=== PATIENT | female | born 1945 | race Caucasian/White ===

== ENCOUNTER → 2019-09-07 08:44 | Outpatient (BNVA) | payer MEDICARE, MEDICAID, SELFPAY | PROVIDERS: Family Provider Nurse Practitioner Family; PCP Nurse Practitioner Family; Visit Provider Nurse Practitioner Family | DX: R11.2 Nausea with vomiting, unspecified (principal); R68.89 Other general symptoms and signs; J44.1 Chronic obstructive pulmonary disease with (acute) exacerbation | CPT/HCPCS: 87804 ==

== ENCOUNTER → 2020-07-05 10:52 | Outpatient (BNVA) | payer MEDICARE, MEDICAID, SELFPAY | PROVIDERS: Family Provider Nurse Practitioner Family; PCP Nurse Practitioner Family; Visit Provider Nurse Practitioner Family | DX: Z20.828 Contact with and (suspected) exposure to other viral communicable diseases (principal); B34.9 Viral infection, unspecified | CPT/HCPCS: 87635 ==

== ENCOUNTER 2020-07-26 10:51 | Outpatient (CLI) | payer MEDICARE, MEDICAID, SELFPAY ==
--- NOTE | 2020-07-26 11:11 | XR_ITS ---
WS: [id number] Right hip, AP and frog-leg views, AP pelvis, 07/26/2020 Clinical Data: RIGHT HIP PAIN Comparison: None. Findings: No fractures or dislocations are seen. The hip joints are intact. The SI joints and pubic symphysis a re not remarkable. The soft tissues are normal. XR/XR hip RT 2-3V wo/w pel* [id number] Impression: Negative right hip and pelvis.
== END 2020-07-26 10:52 | disposition home or self-care (01) ==
PROVIDERS: PCP Nurse Practitioner Family; Visit Provider Nurse Practitioner Family
DX: M25.551 Pain in right hip (principal)
CPT/HCPCS: 73502

== ENCOUNTER 2020-08-07 18:29 | Emergency (ER) | payer MEDICARE, MEDICAID, SELFPAY ==
[2020-08-07 18:33] VITALS: BP 121/58; PULSE 91; RESP 18; TEMP 36.5; O2SAT 98; BMI 30.7
--- NOTE | 2020-08-07 18:45 | ED_ITS ---
HPI - Extremity Problem General: Chief complaint: Extremity Injury, Lower Stated complaint: R LEG AND HIP PAIN Time Seen by Provider: 08/07/20 18:40 History of Present Illness: HPI Narrative: Patient is a 74-year-old female comes to the ED with pain radiating down right leg. Patient says she has been having chronic lower back and right hip pain for the past several months. She is seen her PCP about pain and they just did some hip and pelvis x-rays. For t he past couple weeks she has been having pain radiating down into her right upper thigh. Today she went to sleep lying flat, which is something she has been avoiding doing for the past couple months due to the lower back and right hip and leg pain. She says when she woke up she was having more intense pain starting from the top of her right hip and radiating down into her right thigh. Pain is rated a 7 out of 10. Denies bladder or bowel incontinence, pelvic anesthesia. Associated symptoms: Deny chest pain, fever(s) or rash Review of Systems Const: Denies: fever(s), chills or fatigue Eyes: Denies: change in vision or eye discomfort ENMT: Denies: throat pain, odynophagia, nasal discharge or nasal congestion Card: Denies: chest pain, palpitations, edema, swelling of feet/ankles, dyspnea on exertion or orthopnea Resp: Denies: dyspnea, productive cough or non-productive cough GI: Denies: abdominal pain, nausea, vomiting, diarrhea, constipation or hemat ochezia : Denies: flank pain, dysuria or hematuria Musc: Reports: back pain (Lower back) and extremity pain (Pain rating down into right thigh.); Denies: neck pain or extremity swelling Skin/Breast: Denies: rash or new lesions Neuro: Denies: headache(s), numbness in extremities or weakness in extremities PFSH ED PFSH: Medical History Atherosclerotic cardiovascular disease Atherosclerotic heart disease [place] coronary artery w/angina pectoris Cataracts, bilateral Diabetes Dyslipidemia GERD (gastroesophageal reflux disease) Hypersomnia Hypertension Hypothyroidism Seasonal allergies Surgical History History of cholecystectomy History of hysterectomy Family History Other CAD (coronary artery disease) Diabetes Hypertension Social History Smoking and tobacco status: current every day smoker Alcohol intake: never Marital status: Current gender identity: Female Physical Exam Const: COMMON NORMALS: no acute distress, patient oriented x3 and alert GENERAL APPEARANCE: cooperative and comfortable HENMT: COMMON NORMALS: normocephalic HEAD & SCALP: normocephalic MOUTH: Normal oral and palatal mucosa present THROAT: posterior oropharynx normal and uvula midline Neck/C-Spine: COMMON NORMALS: supple GENERAL: Yes normal visual inspection Resp: COMMON NORMALS: normal respiratory effort, No retractions, No use of accessory muscles and clear to auscultation bilaterally AUSCULTATION: clear to auscultation bilaterally Cardio: COMMON NORMALS: regular rate, regular rhythm, S1 normal heart sound present, S2 normal heart sound present, No gallops present (Cardio), No clicks present (Cardio), No murmurs present (Cardio) and Peripheral pulses 2+ throughou t RATE: regular rate RHYTHM: regular rhythm HEART SOUNDS: S1 normal heart sound present and S2 normal heart sound present PERIPHERAL PULSES: Peripheral pulses 2+ throughout GI: COMMON NORMALS: Normal to inspection, nondistended, normoactive bowel sounds present, Soft to palpation, non-tender and no masses PALPATION: Yes Soft to palpation : COMMON NORMALS: Yes no CVA tenderness BLADDER/KIDNEY EXAM: Yes no CVA tenderness Back/Pelvis: COMMON NORMALS: no CVA tenderness LUMBAR SPINE/LOWER BACK: Yes pain with ROM, No lumbar spinal tenderness, Yes paraspinal muscle tenderness and Yes straight leg raise positive right Extremity: COMMON NORMALS: normal to inspection Neuro: COMMON NORMALS: patient oriented x3 and moves all extremities SENSORIUM/ORIENTATION: Yes alert Skin: GENERAL SKIN EXAM: dry skin Course Vital Signs: Vital signs: Vital Signs Temperature 97.7 F 08/07/20 18:33 Pulse Rate 87 08/07/20 19:41 Respiratory Rate 16 08/07/20 19:41 Blood Pressure 133/87 08/07/20 19:41 Pulse Oximetry 96 08/07/20 19:41 MDM - Extremity (Nontraumatic) MDM Narrative: Medical decision making narrative: Patient is a 74-year-old female comes to the ED with lower back pain and pain radiating down right leg. No cauda equina symptoms. Physical exam findings suggestive of lumbar radiculopathy. Patient was given a dose of Toradol while here in the ED. She was sent home with a prescription for ibuprofen 800s, cyclobenzaprine and Medrol Dosepak. She was told to follow-up with her PCP in 7 to 10 days for reevaluation. Stretch lower back daily and apply ice or heat to lower back to help with symptoms. Return to ED precautions given. Patient understood agree with plan. Discharge Plan Discharge Patient Disposition: Home Clinical Impression: Lumbar radiculopathy Condition: Stable Prescriptions: New ibuprofen 800 mg tablet 800 mg PO Q8H PRN (Reason: pain) Qty: 30 RF: 0 cyclobenzaprine 5 mg tablet 5 mg PO TID PRN (Reason: muscle spasm) Qty: 30 RF: 0 methylprednisolone 4 mg tablets,dose pack See Rx Instructions .ROUTE .COMPLEX Qty: 21 RF: 0 No Action isosorbide mononitrate 30 mg tablet extended release 24 hr 30 mg PO QAM RF: 0 hydrochlorothiazide 25 mg tablet 25 mg PO QAM RF: 0 gabapentin 300 mg capsule 300 mg PO .HS RF: 0 diltiazem HCl 180 mg capsule,extended release 24 hr 180 mg PO QAM RF: 0 meloxicam 15 mg tablet 15 mg PO QDAY RF: 0 levothyroxine 175 mcg tablet 175 mcg PO QDAY RF: 0 nitroglycerin [Nitrostat] 0.4 mg tablet, sublingual 0.4 mg SUBLINGUAL Q5M PRNRF: 0 fenofibrate nanocrystallized 145 mg tablet 145 mg PO QDAY RF: 0 rosuvastatin [Crestor] 40 mg tablet 40 mg PO .HS RF: 0 Tradjenta 5 mg tablet 5 mg PO QAM RF: 0 glipizide 10 mg tablet 20 mg PO BID RF: 0 Farxiga 10 mg tablet 10 mg PO QAM RF: 0 aspirin [Adult Low Dose Aspirin] 81 mg tablet,delayed release (DR/EC) 81 mg PO QDAY RF: 0 prednisone 10 mg tablets,dose pack 10 mg PO PER PKG DIR Qty: 21 RF: 0 (DME) Compact Compressor Nebulizer Misc See Rx Instructions .ROUTE .MEDSUPPLY Qty: 1 RF: 0 (DME) Reusable Nebulizer Kit Kit See Rx Instructions .ROUTE .MEDSUPPLY Qty: 1 RF: 0 albuterol sulfate 2.5 mg /3 mL (0.083 %) solution for nebulization 2.5 mg INHALATION QID PRN (Reason: shortness of breath or wheezing) Qty: 180 RF: 1 Discharge Orders: Discharge ED (Routine); Ordered 08/07/20 Ordered By: Shalom Edwards Referrals: Agnes Dee APN [Primary Care Provider] - Discharge Diet: Regular Discharge Activity: Increase activity as tolerated Patient Instructions: Lumbar Radiculopathy (ED) Activity Restrictions/Additional Instructions: Follow-up with medical provider as directed at next scheduled appointment. Take medications as prescribed. Stretch lower back daily and apply heat or ice to help with symptoms. Return to the ER or your medical provider if condition worsens. Please read and understand discharge instructions. If any questions, please ask. Coding Level of Care Code ED Tourist Guide for Humberto Fwd Exam Comprehensive
[2020-08-07] MEDS: ketorolac 30 mg/mL INJ IVP (19:23)
[2020-08-07 19:41] VITALS: BP 133/87; PULSE 87; RESP 16; O2SAT 96
== END 2020-08-07 19:41 | disposition home or self-care (01) ==
LOC: ER 19:26
PROVIDERS: Emergency Provider Physician Assistant; PCP Nurse Practitioner Family
DX: M54.16 Radiculopathy, lumbar region (principal); Z79.82 Long term (current) use of aspirin; Z79.84 Long term (current) use of oral hypoglycemic drugs; I25.119 Atherosclerotic heart disease of native coronary artery with unspecified angina pectoris; E11.9 Type 2 diabetes mellitus without complications; E78.5 Hyperlipidemia, unspecified; I10 Essential (primary) hypertension; F17.210 Nicotine dependence, cigarettes, uncomplicated
CPT/HCPCS: 12345; 96374; 96375; 99281; 99283; J1885; J2930

== ENCOUNTER 2020-10-05 14:53 | Outpatient (CLI) | payer MEDICARE, MEDICAID, SELFPAY ==
--- NOTE | 2020-10-05 15:02 | MR_ITS ---
WS: [id number] MRI RIGHT HIP NONCONTRAST TECHNIQUE: Axial T1, axial T2 fat sat, coronal T1, coronal STIR, sagittal T2 fat sat, sagittal T1, an d sagittal T2 fat sat, of both hips. CLINICAL INFORMATION: RIGHT HIP PAIN COMPARISON: None. FINDINGS: Moderate degenerative arthritis with joint space narrowing both hips. No acute fractures. No subchond ral edema. Bone marrow signal in the femoral heads and necks are normal. Normal bone marrow signal in the proximal femoral shafts. No significant joint effusion. Inferior and superior pubic rami are normal in appearance. Normal bone marrow signal in the sacrum an d ilium. Degenerative arthritis sacroiliac joints. No periarticular edema. Mild diffuse bladder wall thickening can be seen with chronic cystitis. Sigmoid diverticulosis. No inguinal lymphadenopathy. MR/MR hip RT wo con* [id number] IMPRESSION: 1. Moderate degenerative arthritis both hips. Right hip is otherwise normal in appearance. No acute fractures. 2. Normal bone marrow signal in the pelvic bony structures and sacrum. No sacr al insufficiency fractures. 3. Mild diffuse bladder wall thickening can be seen with chronic cystitis.
--- NOTE | 2020-10-05 15:02 | MR_ITS ---
WS: [id number] MRI LUMBAR SPINE NONCONTRAST TECHNIQUE: Sagittal T1, T2 and STIR imaging. Axial T1 and T2 imaging. CLINICAL INFORMATION: LUMBAR RADICULOPATHY COMPARISON: None. FINDINGS: Counting performed from the craniocervical junction. L5 is sacralized. Recommend plain film correlati on prior to surgical intervention. Mild lumbar curve. No acute compression. No high-grade central canal stenosis. L1-L2: Mild annular bulging. Spinal canal and foramen are patent. Mild facet arthropathy. L2-L3: Mild annular bulging with slight effacement of ventral thecal sac. Mild facet arthropathy. Spi nal canal and foramen are patent. L3-L4: Mild annular bulging with mild central canal stenosis and slight impingement traversing L4 ner ve roots. Moderate facet arthropathy. Small bilateral foraminal protrusions with mild bilateral hilton inal narrowing and slight contact of the exiting L3 nerve roots. L4-L5: Slight anterolisthesis L4 on L5. Mild annular bulging with slight effacement of the ventral th ecal sac. Moderate facet arthropathy. Slight impingement on the traversing L5 nerve roots. Mild right foraminal narrowing. L5-S1: L5 is sacralized. Spinal canal and foramen are patent. Visualized pelvic bony structures: Normal. Paravertebral soft tissues: Normal. Small bilateral renal cysts. MR/MR lumbar spine wo con* [id number] IMPRESSION: 1. Counting performed from the craniocervical junction. L5 is sacralized. Iván mmend plain film correlation prior to surgical intervention. 2. Mild central canal stenosis L3-4 due to mild annular bulging and moderate f acet arthropathy. Impingement traversing L4 nerve roots. 3. Small bilateral foraminal protrusions L3-4 with contact of the exiting L3 n erve roots bilaterally. 4. Annular bulging L4-5 slightly impinges the traversing left greater than rig ht L5 nerve roots. 5. Moderate facet arthropathy L3-L4 and L4-L5.
== END 2020-10-05 14:54 | disposition home or self-care (01) ==
LOC: RADSHAW 14:59
PROVIDERS: PCP Nurse Practitioner Family; Visit Provider Nurse Practitioner Family
DX: M54.16 Radiculopathy, lumbar region (principal); M47.816 Spondylosis without myelopathy or radiculopathy, lumbar region; M51.26 Other intervertebral disc displacement, lumbar region; M48.061 Spinal stenosis, lumbar region without neurogenic claudication; M16.0 Bilateral primary osteoarthritis of hip
CPT/HCPCS: 72148; 73721

== ENCOUNTER → 2020-11-07 09:50 | Outpatient (BNVA) | payer MEDICARE, MEDICAID, SELFPAY | PROVIDERS: PCP Nurse Practitioner Family; Referring Provider Nurse Practitioner Family; Visit Provider Orthopaedic Surgery | DX: M48.062 Spinal stenosis, lumbar region with neurogenic claudication | CPT/HCPCS: 72110 ==

== ENCOUNTER → 2020-11-17 09:43 | Outpatient (BNVA) | payer MEDICARE, MEDICAID, SELFPAY | PROVIDERS: PCP Nurse Practitioner Family; Referring Provider Orthopaedic Surgery; Visit Provider Anesthesiology Pain Medicine | DX: G89.29 Other chronic pain (principal); M54.9 Dorsalgia, unspecified; M47.816 Spondylosis without myelopathy or radiculopathy, lumbar region; M54.16 Radiculopathy, lumbar region; M48.062 Spinal stenosis, lumbar region with neurogenic claudication; M25.559 Pain in unspecified hip; M19.90 Unspecified osteoarthritis, unspecified site | CPT/HCPCS: 99205 ==

== ENCOUNTER 2021-01-22 12:39 | Outpatient (CLI) | payer MEDICARE, MEDICAID, SELFPAY ==
--- NOTE | 2021-01-22 12:53 | XR_ITS ---
WS: [id number] LEFT TIBIA-FIBULA 2 VIEWS HISTORY: WOUND OF LEFT LOWER EXTREMITY, INITIAL ENCOUNTER COMPARISON: None available. No fractures or displacement. There is soft tissue edema around the lower extremity. There is mild di splacement posteriorly of the Achilles tendon. Soft tissue edema between the distal tibia and the Ach illes. XR/XR tibia fibula LT 2V [id number] IMPRESSION: 1. Loss of the normal fat planes posterior to the tibia. No osteomyelitis. Rec ommend additional evaluation of the mid to lower extremity MRI with and without contrast to evaluate for possible abscess. 2. No fracture.
== END 2021-01-22 12:40 | disposition home or self-care (01) ==
PROVIDERS: PCP Nurse Practitioner Family; Visit Provider Nurse Practitioner Family
DX: S81.802A Unspecified open wound, left lower leg, initial encounter (principal); X58.XXXA Exposure to other specified factors, initial encounter
CPT/HCPCS: 73590

== ENCOUNTER 2021-02-01 08:10 | Outpatient (CLI) | payer MEDICARE, MEDICAID, SELFPAY | END 2021-02-01 08:11 | disposition home or self-care (01) | LOC: WOUND 08:14 | PROVIDERS: PCP Nurse Practitioner Family; Visit Provider Nurse Practitioner Family | DX: E11.622 Type 2 diabetes mellitus with other skin ulcer (principal); L97.822 Non-pressure chronic ulcer of other part of left lower leg with fat layer exposed | CPT/HCPCS: G0463 ==

== ENCOUNTER 2021-02-05 13:51 | Outpatient (CLI) | payer MEDICARE, MEDICAID, SELFPAY ==
--- NOTE | 2021-02-05 14:02 | MR_ITS ---
WS: [id number] MRI LEFT LOWER EXTREMITY with and without CONTRAST. COMPARISON: LEFT tibia-fibula 01/22/2021. Multiplanar, multisequence imaging is performed with and without contrast. No muscle or bone edema is identified. No fracture or destruction. No expansion of the marrow cavity. The soft tissues and the muscles of the LEFT lower extremity are normal. On the postcontrast sequenc e there is no enhancing mass or signal abnormalities or edema within the muscle. No compartment syndr ome. Visualized tendons and ligaments are negative. MR/MR lower leg LT wo/w con [id number] IMPRESSION: Negative MRI LEFT lower extremity. No muscle or bone abnormality.
[2021-02-05] MEDS: gadobenate dimeglumine 20 mL vial IV (15:18)
== END 2021-02-05 13:52 | disposition home or self-care (01) ==
LOC: RADWPI 13:55
PROVIDERS: PCP Nurse Practitioner Family; Visit Provider Nurse Practitioner Family
DX: S81.802A Unspecified open wound, left lower leg, initial encounter (principal); X58.XXXA Exposure to other specified factors, initial encounter
CPT/HCPCS: 73720; A9577

== ENCOUNTER 2021-02-08 08:50 | Outpatient (CLI) | payer MEDICARE, MEDICAID, SELFPAY | END 2021-02-08 08:51 | disposition home or self-care (01) | LOC: WOUND 08:52 | PROVIDERS: PCP Nurse Practitioner Family; Visit Provider Nurse Practitioner Family | DX: E11.622 Type 2 diabetes mellitus with other skin ulcer (principal); L97.822 Non-pressure chronic ulcer of other part of left lower leg with fat layer exposed | CPT/HCPCS: 11042 ==

== ENCOUNTER 2021-02-15 09:08 | Outpatient (CLI) | payer MEDICARE, MEDICAID, SELFPAY | END 2021-02-15 09:09 | disposition home or self-care (01) | LOC: WOUND 09:09 | PROVIDERS: PCP Nurse Practitioner Family; Visit Provider Nurse Practitioner Family | DX: E11.622 Type 2 diabetes mellitus with other skin ulcer (principal); L97.822 Non-pressure chronic ulcer of other part of left lower leg with fat layer exposed | CPT/HCPCS: 11042 ==

== ENCOUNTER 2021-03-01 09:19 | Outpatient (CLI) | payer MEDICARE, MEDICAID, SELFPAY | END 2021-03-01 09:20 | disposition home or self-care (01) | LOC: WOUND 09:20 | PROVIDERS: PCP Nurse Practitioner Family; Visit Provider Nurse Practitioner Family | DX: E11.622 Type 2 diabetes mellitus with other skin ulcer (principal); L97.822 Non-pressure chronic ulcer of other part of left lower leg with fat layer exposed | CPT/HCPCS: 11042 ==

== ENCOUNTER 2021-03-14 12:56 | Outpatient (CLI) | payer MEDICARE, MEDICAID, SELFPAY ==
--- NOTE | 2021-03-14 12:45 | USCV_ITS ---
Nirali Beaulieu Age: 75 Gender: F : 1945 Exam Date: 03/14/2021 13:27 Ordering Phys: Jannette Purcell Technologist: Shiela Peguero [place]am Location[place] [facility] [place]: HISTORY: Lower extremity pain. Ulcer. PROCEDURES: Bilateral duplex Venous Insufficiency study of the Deep and Superficial systems was carried out according to normal protocol with the patient in supine positon for deep system and dependent position for the superficial system. FINDINGS: All deep veins demonstrated compressibility without evidence of intraluminal thrombus or increased echogenicity. No notable reflux was seen at this time. The veins were found to be easily compressible with spontaneous blood flow. Non pulsatile flow pattern. CONCLUSIONS Evidence of any superficial or deep vein thrombosis in the above- mentioned identifiable veins No significant venous insufficiency Dr Liz Russell MD [facility] (Electronically Signed) Final Date: 19 March 2021 08:12 S
== END 2021-03-14 12:57 | disposition home or self-care (01) ==
LOC: US 12:59
PROVIDERS: PCP Nurse Practitioner Family; Visit Provider Nurse Practitioner Family
DX: R52 Pain, unspecified (principal); L53.9 Erythematous condition, unspecified; L97.829 Non-pressure chronic ulcer of other part of left lower leg with unspecified severity
CPT/HCPCS: 93970

== ENCOUNTER 2021-03-15 09:55 | Outpatient (CLI) | payer MEDICARE, MEDICAID, SELFPAY ==
--- NOTE | 2021-03-15 12:38 | USCV_ITS ---
Nirali Beaulieu Age: 75 Gender: F : 1945 Exam Date: 03/15/2021 12:45 Ordering Phys: Jannette Purcell RN Technologist: Shiela Peguero Exam Location: [facility] – [place] Indication: PAD RIGHT LEFT Brachial 138.00 mmHg Brachial 139.00 mmHg Pressure (mmHg) Waveform Pressure (mmHg) Waveform 68.00 Above Knee 68.00 63.00 Below Knee 66.00 57.00 VISUAL TRAINING AIDE 60.00 59.00 DPA 60.00 0.41 Ankle/Brachial Index 0.43 41.00 Pre-Exercise Toe Pressure 35.00 Pre-Exercise Toe/Brachial Index 0.25 0.29 FINDINGS Normal resting ABIs and TBIs bilaterally(0.41/.29 on the right PVR waveforms are difficult in report Markedly diminished segmental pressures bilaterally CONCLUSIONS Features suggestive of severe peripheral artery disease bilaterally Possible aortoiliac disease Dr Liz Russell MD [facility] (Electronically Signed) Final Date: 18 March 2021 21:34 S
== END 2021-03-15 09:56 | disposition home or self-care (01) ==
LOC: WOUND 09:59
PROVIDERS: PCP Nurse Practitioner Family; Visit Provider Emergency Medicine
DX: F17.210 Nicotine dependence, cigarettes, uncomplicated (principal); I73.9 Peripheral vascular disease, unspecified; E11.622 Type 2 diabetes mellitus with other skin ulcer; L97.822 Non-pressure chronic ulcer of other part of left lower leg with fat layer exposed
CPT/HCPCS: 11042; 93923

== ENCOUNTER 2021-03-22 09:47 | Outpatient (CLI) | payer MEDICARE, MEDICAID, SELFPAY | END 2021-03-22 09:48 | disposition home or self-care (01) | LOC: WOUND 09:49 | PROVIDERS: PCP Nurse Practitioner Family; Visit Provider Emergency Medicine | DX: E11.622 Type 2 diabetes mellitus with other skin ulcer (principal); L97.822 Non-pressure chronic ulcer of other part of left lower leg with fat layer exposed; F17.210 Nicotine dependence, cigarettes, uncomplicated | CPT/HCPCS: 11042; 99212 ==

== ENCOUNTER 2021-03-29 09:15 | Outpatient (CLI) | payer MEDICARE, MEDICAID, SELFPAY | END 2021-03-29 09:16 | disposition home or self-care (01) | LOC: WOUND 09:16 | PROVIDERS: PCP Nurse Practitioner Family; Visit Provider Nurse Practitioner Family | DX: I96 Gangrene, not elsewhere classified (principal); E11.622 Type 2 diabetes mellitus with other skin ulcer; L97.822 Non-pressure chronic ulcer of other part of left lower leg with fat layer exposed; F17.210 Nicotine dependence, cigarettes, uncomplicated | CPT/HCPCS: 11042 ==

== ENCOUNTER 2021-04-05 09:25 | Outpatient (CLI) | payer MEDICARE, MEDICAID, SELFPAY | END 2021-04-05 09:26 | disposition home or self-care (01) | LOC: WOUND 09:26 | PROVIDERS: PCP Nurse Practitioner Family; Visit Provider Emergency Medicine | DX: I73.9 Peripheral vascular disease, unspecified (principal); L97.822 Non-pressure chronic ulcer of other part of left lower leg with fat layer exposed | CPT/HCPCS: 15271; C1849 ==

== ENCOUNTER 2021-04-12 09:48 | Outpatient (CLI) | payer MEDICARE, MEDICAID, SELFPAY | END 2021-04-12 09:49 | disposition home or self-care (01) | LOC: WOUND 09:49 | PROVIDERS: PCP Nurse Practitioner Family; Visit Provider Emergency Medicine | DX: E11.622 Type 2 diabetes mellitus with other skin ulcer (principal); I73.9 Peripheral vascular disease, unspecified; L97.822 Non-pressure chronic ulcer of other part of left lower leg with fat layer exposed | CPT/HCPCS: G0463 ==

== ENCOUNTER 2021-04-17 12:13 | Outpatient (CLI) | payer MEDICARE, MEDICAID, SELFPAY ==
--- NOTE | 2021-04-17 12:30 | CTR_ITS ---
PROCEDURE INFORMATION: Exam: CTA Angiogram of the Abdominal Aorta and Bilateral Lower Extremities (Run-off) With IV Contrast Exam date and time: 04/17/2021 12:30 PM Age: 75 years old Clinical indication: Condition or disease; Peripheral vascular disease; Patient HX: Pain, swelling, redness in marian feet x 6 months, HX of thyroid and uterine cancer; Additional info: I73.9 - peripheral vascular disease, unspecified TECHNIQUE: Imaging protocol: CT angiogram of the abdominal aorta, pelvis and bilateral lower extremities with IV iodinated contrast. 3D rendering (Not supervised by radiologist): MIP and/or 3D reconstructed images were created by the technologist. Radiation optimization: All CT scans at this facility use at least one of these dose optimization techniques: automated exposure control; mA and/or kV adjustment per patient size (includes targeted exams where dose is matched to clinical indication); or iterative reconstruction. Contrast material: OMNI 350; Contrast volume: 95 ml; Contrast route: INTRAVENOUS (IV); COMPARISON: MR hip RT wo con* [id number] 10/05/2020 4:24 PM RADIATION DOSE METRICS: Total DLP (mGy-cm): 1594.65 FINDINGS: Aorta: There is no abdominal aortic aneurysm. Extensive atherosclerotic changes are noted throughout the aorta with peripheral calcifications. Subocclusive plaque is noted in the distal abdominal aorta. Celiac trunk and mesenteric arteries: No occlusion or significant stenosis. Renal arteries: No occlusion or significant stenosis. Right iliac arteries: There is a segment of occlusion of the right proximal common iliac artery measuring nearly 4 cm in length. The right distal common iliac artery is opacified with significant calcified plaque narrowing the lumen about 50%. The right external iliac artery is small in caliber with mild atherosclerotic plaque but no critical stenosis. There is moderate narrowing of the origin of the right internal iliac artery due to calcific plaque. Right femoral/popliteal arteries: There is mild intermittent narrowing of the right superficial femoral artery due to scattered calcific plaque. There is marked narrowing of the right proximal popliteal artery due to a large calcific plaque narrowing the lumen by 80%. Right infrapopliteal arteries: No occlusion or significant stenosis. There is a good three-vessel runoff. Left iliac arteries: There is a segment of occlusion of the left proximal common iliac artery measuring nearly 3.5 cm in length. The distal left common iliac artery is mildly narrowed by calcification and soft tissue plaque. There is mild narrowing of the left external iliac artery due to calcified plaque at its origin. The remaining left external iliac artery is small in caliber with mild atherosclerotic changes. There is moderate stenosis of the origin of the right internal iliac artery due to calcified plaque. Left femoral/popliteal arteries: There is moderate atherosclerotic changes in the left popliteal artery with mild narrowing of the lumen measuring up to 50%. Left infrapopliteal arteries: No occlusion or significant stenosis. There is a good three-vessel runoff. Lungs: There is mild bibasilar ground-glass opacity compatible with atelectasis, mild edema or pneumonitis. Mediastinum: A small hiatal hernia is present. Liver: There is a diffuse decrease in hepatic parenchymal density, consistent with fatty infiltration. Gallbladder and bile ducts: There has been a cholecystectomy. There is no common bile duct dilation. Pancreas: The pancreas is normal. Spleen: The spleen is normal. Adrenals: There is multilobulated benign adenomatous enlargement of the adrenal glands. Kidneys and ureters: There is no evidence of hydronephrosis. There is no evidence of renal calcifications. There are multiple renal hypodensities that cannot be further characterized on the current examination. Bilateral simple renal cysts are noted with the largest protruding from the upper pole right kidney measuring 2.3 cm in size. No follow-up is necessary. Stomach and bowel: There is prominent diffuse gastric wall thickening especially the distal pylorus and duodenal bulb concerning for gastro duodenitis. There is no evidence of intestinal perforation or obstruction. There is moderately excessive colonic stool content. The wall of the distal descending and sigmoid colon is thickened but collapsed. This appearance may reflect lack of distention however mild colitis cannot be excluded. Appendix: The appendix is not definitively identified. Bladder: There is nonspecific bladder wall thickening. This may be related to incomplete distention. Reproductive: Unremarkable as visualized. Intraperitoneal space: However, there is no CT evidence of a right lower quadrant inflammatory process. Lymph nodes: No lymphadenopathy. Bones/joints: No acute fracture. No dislocation. Soft tissues: There is a fat-containing umbilical hernia. CT/CT angio abd aorta runof [id number] IMPRESSION: 1. Bilateral occlusion of the proximal common iliac arteries. Very small caliber external iliac arteries. Good bilateral three-vessel runoff. 2. There is prominent diffuse gastric wall thickening especially the distal pylorus and duodenal bulb concerning for gastro duodenitis. 3. The wall of the distal descending and sigmoid colon is thickened but collapsed. This appearance may reflect lack of distention however mild colitis cannot be excluded. Radiation Dose CTDIVOL = (mGy): DLP = 1594.65 (mGy-cm)
--- NOTE | 2021-04-17 13:30 | USCV_ITS ---
Nirali Beaulieu Age: 75 Gender: F : 1945 Exam Date: 04/17/2021 12:30 Ordering Phys: Liz Russell MD ([email or web address]) Technologist: Kindra Nation [place] [facility] [place]: TIA Risk Factors: Unknown Previous Vascular Surgery: None Right Brachial BP: / Left Brachial BP: / Right Left Velocity (cm/s) Spectral Plaque Velocity (cm/s) Spectral Plaque Syst/Diast Broadening Syst/Diast Broadening 63.90/ 16.50 Prox CCA 61.70 / 13.20 51.80/ 14.30 Mid CCA 43.40 / 15.10 50.00/ 11.20 Hetro Distal CCA 49.30 / 11.20 Hetro 52.00/ 14.00 Hetro Prox ICA 76.90 / 19.70 Hetro 59.00/ 14.80 Mid ICA 87.90 / 18.20 62.60/ 17.40 Distal ICA 80.00 / 15.30 94.00 Hetro ECA 71.00 Hetro 1.21 ICA/CCA 2.03 Antegrade Vertebral Antegrade 21.30/ 5.30 cm/s 50.90/ 5.80 cm/s Tri Subclavian Bi 106.3 134.8 0 0 FINDINGS Moderate heterogeneous plaques at the bifurcations and proximal internal carotid arteries bilaterally. Antegrade flow in the vertebral arteries bilaterally Normal Doppler flow velocities in the external carotid and subclavian arteries bilaterally CONCLUSIONS Moderate heterogeneous plaques at the bifurcations and proximal internal carotid arteries bilaterally with Doppler features suggesting less than 50% stenosis. No significant stenosis in the external carotid or subclavian arteries, based on the above findings. Dr Liz Russell MD [facility] (Electronically Signed) Final Date: 17 April 2021 16:48 S
[2021-04-17 13:38] LABS: Blood Urea Nitrogen 13 mg/dL (8-23)
[2021-04-17] MEDS: iohexol 350 mg/mL 100 mL Btl IV (14:07)
== END 2021-04-17 12:14 | disposition home or self-care (01) ==
LOC: RAD 12:20
PROVIDERS: PCP Nurse Practitioner Family; Visit Provider Internal Medicine Cardiovascular Disease
DX: I73.9 Peripheral vascular disease, unspecified (principal); G45.9 Transient cerebral ischemic attack, unspecified; I74.5 Embolism and thrombosis of iliac artery
CPT/HCPCS: 36415; 75635; 82565; 84520; 93880

== ENCOUNTER 2021-04-19 10:27 | Outpatient (CLI) | payer MEDICARE, MEDICAID, SELFPAY | END 2021-04-19 10:28 | disposition home or self-care (01) | LOC: WOUND 10:30 | PROVIDERS: PCP Nurse Practitioner Family; Visit Provider Emergency Medicine | DX: E11.622 Type 2 diabetes mellitus with other skin ulcer (principal); I73.9 Peripheral vascular disease, unspecified; L97.822 Non-pressure chronic ulcer of other part of left lower leg with fat layer exposed | CPT/HCPCS: 11042; 99212 ==

== ENCOUNTER → 2021-04-23 10:43 | Outpatient (BNVA) | payer MEDICARE, MEDICAID, SELFPAY | PROVIDERS: PCP Nurse Practitioner Family; Visit Provider Internal Medicine Cardiovascular Disease | DX: R09.89 Other specified symptoms and signs involving the circulatory and respiratory systems (principal); I10 Essential (primary) hypertension; I25.10 Atherosclerotic heart disease of native coronary artery without angina pectoris; I73.9 Peripheral vascular disease, unspecified | CPT/HCPCS: 80048; 83880; 85025; 85610; 86850; 86900; 87635 ==

== ENCOUNTER 2021-04-26 10:35 | Outpatient (CLI) | payer MEDICARE, MEDICAID, SELFPAY | END 2021-04-26 10:36 | disposition home or self-care (01) | LOC: WOUND 10:36 | PROVIDERS: PCP Nurse Practitioner Family; Visit Provider Emergency Medicine | DX: I73.9 Peripheral vascular disease, unspecified (principal); E11.622 Type 2 diabetes mellitus with other skin ulcer; L97.822 Non-pressure chronic ulcer of other part of left lower leg with fat layer exposed; F17.210 Nicotine dependence, cigarettes, uncomplicated | CPT/HCPCS: 11042 ==

== ENCOUNTER 2021-04-27 13:19 | Observation (INO) | payer MEDICARE, MEDICAID, SELFPAY ==
[2021-04-27] VITALS (20 sets, daily range): BP systolic 126–220; BP diastolic 56–103; PULSE 83–111; RESP 11–22; TEMP 36.9–37.1; O2SAT 90–97; BMI 29.2
--- NOTE | 2021-04-27 11:58 | XACV_ITS ---
Ht: 157 cm Wt: 74 kg BSA: 1.82 m2 Gender: Female : 1945 Exam Type: Invasive Peripheral Vascular Procedure(s): Procedure Description: Peripheral Cath Diagnostic Procedure Procedure Description: Abdominal aortic angiography Exam Priority: Routine Carotid Diagnostic Findings With the right radial access, a long P2 catheter was advanced to the arch of the aorta into the descending aorta. The pigtail catheter tip was placed just above the level of the renal arteries. An aortogram with runoff was performed in the anteroposterior view. The arch of the aorta was found to be very tortuous and heavily calcified. Calcification also was noted in the bilateral carotid arteries. The proximal segments of celiac, superior mesenteric, renal and inferior mesenteric arteries were visualized and were found to be patent.. 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 Both common iliac arteries were found to be occluded from the ostia to the origins of the internal iliac arteries. Bridging collaterals were noted to the lumbar arteries and median sacral arteries. The internal iliac arteries were found to have severe diffuse disease proximally. The straight iliac and the common femoral arteries were found to be patent. Conclusions 75-year-old white female with a history of atherosclerotic heart disease, peripheral artery disease, high blood pressure, type 2 diabetes and dyslipidemia, now is presenting with exertional claudication and nonhealing ulcer of the left lower extremity. Abdominal aortogram with runoff was performed via the right radial artery access. The findings are as follows. The aortic arch was found to be tortuous and heavily calcified. Moderate diffuse disease was noted in the abdominal aorta. The proximal segments of the celiac, superior mesenteric, renal and inferior mesenteric arteries were found to be patent. Abdominal aorta was found to be totally occluded at its terminal bifurcation. The common iliac arteries were found to be totally occluded bilaterally. The external iliac artery and internal iliac arteries were found to be reconstituted through collaterals from the lumbar and median sacral arteries. The external iliac and the common femoral arteries were found to be patent bilaterally.. Recommendations Continue current medical management and risk factor modification. Follow up with PCP as directed. Consider surgical revascularization. Access Site Site: Right Radial artery Sheath Size: 6 Fr Hemost... Method: TR Band Hemost... Success: Successful Procedure Details Findings Procedure Consent Obtained. Admit Source: Out Patient. Identified patient by full name and date of as verbalized by the patient/guarantor. Identified patient by full name and date of as verbalized by the patient/guarantor. Identified patient by full name and date of as verbalized by the patient/guarantor. Does the consent match the physician's order: Yes. Accurate & Complete Informed Consent: Yes. Inpatient/Outpatient History & Physical on Chart: Yes. If H&P is completed, is and addenduem needed: N/A; If yes, is the addendum complete: N/A. Visualize and Verify Site with Patient/Guarantor: N/A. Relevant Radiology Images available: Yes. Pre-op teaching completed and patient verbalized understanding. The risks, benefits, and alternatives of sedation and/or procedure were discussed by physician. The patient agrees to continue. Procedure started. PERRLA. Strong, equal hand supervisor lump room bilaterally. Lungs clear x 5 lobes. IV Site on Arrival: 20 gauge in the right anticubital. IV Fluids: 0.9% NaCl at KVO. 75 mL infused prior to [facility]. Pre Procedural Pulses: bilateral dorsalis pedis was Doppled. Pre Procedural Pulses: bilateral posterior tibial was Doppled. Oxygen started at 2liters/min via nasal canula. Physician notified. Baseline sample Acquired. HR: 97 BPM. right radial was prepped with chloroprep then draped in the usual sterile fashion. Physician arrived. Physician scrubbed in. Time out performed with cath team. Lidocaine 1% infiltrated to the right radial. Arterial access obtained. NS 250 ml Bolus. A 5 barbadian 125cm Straight Pig catheter in over wire. Catheter out. A 5 barbadian JR4 catheter in over wire. Catheter out. A 5 barbadian Uriel catheter in over wire. Catheter out. A 5 barbadian AL3 catheter in over wire. Catheter out. Wire out. Hand injection through the catheter to the aorta. Glidewire inserted. A 5 barbadian TIG catheter in over wire. Catheter out. Glidewire removed. A 5 barbadian Straight Pig catheter in over wire. Abdominal aortogram performed in AP @ 20 mL/sec for a total of 40 mL. Glidewire inserted. Glidewire removed. Catheter out. A TR Band was successful obtaining hemostatsis at the Right Radial artery insertion site. Total IV fluids: 309 mL. Medication's Wasted: Lidocaine 1% = 18 mL. Medication's Wasted: Nitro = 49.8 mg. Medication's Wasted: Heparin = 1000 u. TR band placed. Hemostasis obtained. PERRLA. Strong, equal hand supervisor lump room bilaterally. No VTE prophylaxis required. Estimated blood loss: 5mL-10mL. Procedure completed. Patient transferred by bed to 1st floor. Procedure Medications Start: 12:31 PM Stop: 12:31 PM Medication: Versed Amount: 1 mg Route: I.V. Start: 12:31 PM Stop: 12:31 PM Medication: Fentanyl Amount: 50 mcg Route: I.V. Start: 12:34 PM Stop: 12:34 PM Medication: Verapamil Amount: 5 mg Route: I.A. Start: 12:35 PM Stop: 12:35 PM Medication: Nitrogylcerin Amount: 200 mcg Route: I.A. Start: 12:40 PM Stop: 12:40 PM Medication: Heparin Amount: 5000 units Route: I.V. Start: 12:41 PM Stop: 12:41 PM Medication: Versed Amount: 0.5 mg Route: I.V. I, the attending physician, have reviewed and verified all procedure medications. Yes, all medications given per verbal order History/Risk Factors Hypertension: Yes Dyslipidemia: No Peripheral Arterial Disease (PAD): Yes Obesity: Yes Renal Disease: No Prior Interventions PCI: No CABG: No Valve Surgery: No Report Signatures Finalized by Dr Liz Russell MD [facility] on 04/28/2021 04:31 PM
--- NOTE | 2021-04-27 12:06 | W.PM.OPSUD ---
Surgery/Procedure H&P Update DATE OF PROCEDURE: April 27, 2021 DATE H&P PERFORMED: 04/27/21 H&P UPDATE INFORMATION: I have reviewed H&P completed within last 30 days, I have examined patient prior to procedure and No changes to prior documentation PREOP DIAGNOSIS: Peripheral arterial disease PRIMARY INDICATION FOR PROCEDURE: Nonhealing ulcer on the left leg PLANNED PROCEDURE: Operation Date: 04/27/21 12:00 Proposed Procedures p Peripheral Diagnostic(Not Applicable) - Liz Russell MD PATIENT REASSESSED PRIOR TO SEDATION, WITH NO CHANGE NOTED: Yes PHYSICAL EXAM: alert, oriented x 3, clear to auscultation bilaterally, regular rate & rhythm and operative site marked AIRWAY EVAL/ANESTHESIA PLAN: normal airway, see other exam findings, ASA III, Monitored Anesthesia, Local Anesthesia, Risks, benefits & alternatives of sedation and/or procedure discussed and Patient agrees to continue as planned
--- NOTE | 2021-04-27 12:08 | PM.OPSURHP ---
Providers/Chief Complaint Admitting Physician: YOSI Rsusell Primary Care Provider: Agnes Dee APN Chief Complaint: peripheral History of Present Illness Nirali Beaulieu is a 75 year old female with a history of atherosclerotic heart disease and peripheral arterial disease, presenting with bilateral exertional claudication and a nonhealing ulcer in the left leg. She had an PATRICK which was found to be abnormal. The PATRICK was 0.41 normal on the right side and 0.29 on the left side. Patient has not had any significant chest pain or chest tightness lately. The CTA of the aorta with runoff revealed a total occlusion of the common femoral arteries bilaterally. She was found to have good three-vessel runoff in the infrapopliteal vessels. Moderate diffuse plaques were noted in the iliac and femoral arteries bilaterally. Review of Systems Narrative: CONSTITUTIONAL: No fever or chills. EYES: No blurring of vision or other visual disturbances lately. ENT: No hoarseness of voice, auditory disturbances or sore throat. CARDIOVASCULAR: As mentioned above. RESPIRATORY: No significant cough. GASTROINTESTINAL: No hematemesis or melena. GENITOURINARY: No dysuria or hematuria. INTEGUMENTARY: No skin rashes or history of skin cancer. NEURO: No transient ischemic attacks or amaurosis. PSYCHIATRIC: No history of psychosis or major depression. HEMATOLOGIC: No bleeding disorders or significant anemia. ENDOCRINE: No history of polyuria or polydipsia. MUSCULOSKELETAL: No recent joint pain or swelling. ALLERGY/IMMUNOLOGY: As mentioned above. Medications/Allergies Home Medications Medication Instructions Recorded Confirmed Last Taken Type aspirin 81 mg tablet,delayed 81 mg PO QDAY 09/06/19 04/27/21 04/26/21 09:00 History release diltiazem HCl 180 mg capsule,24 180 mg PO QAM 09/06/19 04/27/21 04/26/21 09:00 History hr,extended release fenofibrate nanocrystallized 145 145 mg PO QDAY 09/06/19 04/27/21 04/26/21 09:00 History mg tablet gabapentin 300 mg capsule 300 mg PO .HS cap 09/06/19 04/27/21 04/26/21 21:00 History glipizide 10 mg tablet 20 mg PO BID tab 09/06/19 04/27/21 04/26/21 09:00 History hydrochlorothiazide 25 mg tablet 25 mg PO QAM 09/06/19 04/27/21 04/26/21 09:00 History isosorbide mononitrate 30 mg 30 mg PO QAM 09/06/19 04/27/21 04/26/21 09:00 History tablet,extended release 24 hr levothyroxine 175 mcg tablet 175 mcg PO QDAY 09/06/19 04/27/21 04/26/21 09:00 History linagliptin 5 mg tablet 5 mg PO QAM 09/06/19 04/27/21 04/26/21 09:00 History nitroglycerin 0.4 mg sublingual 0.4 mg SUBLINGUAL Q5M PRN 09/06/19 04/27/21 04/26/21 09:00 History tablet rosuvastatin 40 mg tablet 40 mg PO .HS tab 09/06/19 04/27/21 04/26/21 21:00 History albuterol sulfate 2.5 mg INHALATION QID PRN #180 ml 09/08/19 04/27/21 04/26/21 09:00 Rx nebulizer accessories #1 each 09/08/19 04/27/21 Unknown Rx nebulizers #1 each 09/08/19 04/27/21 Unknown Rx ibuprofen 800 mg PO Q8H PRN #30 tab 08/07/20 04/27/21 04/26/21 21:00 Rx ranolazine 500 mg tablet,extended 500 mg PO BID 11/17/20 04/27/21 04/26/21 09:00 History release,12 hr cyclobenzaprine 5 mg tablet 20 mg PO TID PRN tab 03/21/21 04/27/21 04/26/21 21:00 History insulin degludec 100 unit/mL (3 20 unit SUBCUT DAILY ml 03/21/21 04/27/21 04/26/21 09:00 History mL) subcutaneous pen atenolol 50 mg tablet 50 mg PO DAILY #30 tab 04/17/21 04/27/21 04/26/21 09:00 Rx Allergies Allergy/AdvReac Type Severity Reaction Status Date / Time Sulfa (Sulfonamide Allergy RASH Verified 04/27/21 11:54 Antibiotics) tetanus toxoid, adsorbed Allergy Unknown Verified 04/27/21 11:54 metformin AdvReac DIARRHEA Verified 04/27/21 11:54 Penicillins AdvReac RASH Verified 04/27/21 11:54 PFSH PFSH: Medical History Atherosclerotic cardiovascular disease Atherosclerotic heart disease [place] coronary artery w/angina pectoris Cataracts, bilateral Diabetes Dyslipidemia GERD (gastroesophageal reflux disease) Hypersomnia Hypertension Hypothyroidism Seasonal allergies Surgical History History of cholecystectomy History of hysterectomy Family History Mother CAD (coronary artery disease) Diabetes Stroke Sister Cancer Diabetes Lung disease Other Hypertension Denies family history of Clotting disorder Dementia Chronic kidney disease (CKD) Suicide Anesthesia complication Bleeding disorder Social History Smoking and tobacco status: current every day smoker Alcohol intake: never Marital status: History of recent travel: No Current gender identity: Female Physical Exam Narrative: EXAM NARRATIVE: GENERAL: The patient is alert and oriented times three. Not in any acute distress. HEENT: No significant pallor, icterus or lymphadenopathy.Oral cavity: There are no mucous membrane lesions. NECK: Trachea appears to be central. No masses noted. No JVD or thyromegaly appreciated. RESPIRATORY: Chest is symmetrical. No intercostals muscle retraction or any accessory muscle activation. There is no chest wall tenderness. Breath sounds are heard bilaterally. No rales or rhonchi heard. No evidence of any consolidation. BREASTS: Deferred. HEART: The heart sounds are normal. No S3 or S4. Short systolic murmur in the left sternal border. No diastolic murmurs.. No pericardial rub ABDOMEN: No vessel pulsations or distention. No tenderness. No organomegaly appreciated. Bowel sounds are normally heard. : Deferred. RECTAL: Deferred. LYMPHATIC: No lymphadenopathy noted in the neck or groin. EXTREMITIES: No edema or cyanosis. No clubbing. Nonhealing ulcer in the left leg above the ankle. The dorsalis pedis and posterior pulses are nonpalpable bilaterally MUSCULOSKELETAL: No acute joint deformities or swelling SKIN: There are no significant rashes or ecchymosis NEUROPSYCHIATRIC: The patient is alert and oriented x3. Appears to be in a good mood. No tremors or rigidity noted. Data Imaging^: CTA of the abdominal aorta with run off: Radiologist's impression: 1. Bilateral occlusion of the proximal common iliac arteries. Very small caliber external iliac arteries. Good bilateral three-vessel runoff. 2. There is prominent diffuse gastric wall thickening especially the distal pylorus and duodenal bulb concerning for gastro duodenitis. 3. The wall of the distal descending and sigmoid colon is thickened but collapsed. This appearance may reflect lack of distention however mild colitis cannot be excluded. A&P Assessment and plan (1) Peripheral Vascular Disease: In view of the patient's ongoing exertional claudication and nonhealing the peripheral arteries and decide on further management. This was discussed with the patient in detail. The risk of bleeding, hematoma, vascular injury, myocardial infarction, CVA, renal failure and other concomitant complications were explained in detail. Patient understood this well and consented to proceed. Status: Acute (2) Atherosclerotic cardiovascular disease: Patient is currently asymptomatic. We will continue on the current medications. 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 Continue on the current medications. Status: Acute Qualifiers: Hypertension type: essential hypertension Qualified Code(s): I10 - Essential (primary) hypertension (5) Dyslipidemia: Status: Acute Additional A&P Information Based on the results of the above and also patient's clinical progress, further management decisions will be made. Coding Level of Care Code Acute [employer] Laboratory Chief for Chg Fwd History Expanded Problem Focused Exam Detailed Medical Decision Making Moderate Complexity Diagnoses Peripheral Vascular Disease I73.9 Atherosclerotic cardiovascular disease I25.10 Diabetes E11.65; Z79.4 Diabetes mellitus complication status: with hyperglycemia Diabetes mellitus care home insulin use: with machine long goods helper use Diabetes mellitus type: type 2 Hypertension I10 Hypertension type: essential hypertension Dyslipidemia E78.5
--- NOTE | 2021-04-27 14:30 | PC.NURSE ---
Patient's niece can to nurses station stating Nirali couldn't speak right Patient having difficulty expressing her thoughts. Able to follow commands. Mild weakness in right hand. Code stroke called. Symptoms resolving. Dr. Russell notified.
--- NOTE | 2021-04-27 14:37 | CT_ITS ---
WS: [id number] CT HEAD NONCONTRAST HISTORY: Expressive Aphasia; right arm weakness TECHNIQUE: Contiguous axial imaging performed through the brain in 2.5 mm imaging. Bone and soft tiss ue windows. Sagittal and coronal reformats reviewed. All CT scans at [facility] use at least one of these dose optimization techniques: automated exposure control; mA and/or kV adjustment per pa tient size (includes targeted exams where dose is matched to clinical indication); or iterative recon struction. DLP: 878.23 mGy-cm. COMPARISON: None available. There is high density within the vascular system from a recent cardiac angiogram. Small areas of acut e blood or acute thrombus within the arteries would be obscured. Mild atrophy with moderate chronic m icrovascular ischemic type changes within the white matter. No atrophy or prior infarcts or herniation. Ventricles: Normal size with no hydrocephalus. No inferior displacement of the cerebellar tonsils. Paranasal sinuses: As visualized are clear. Mastoid air cells: Well pneumatized. Calvarium and scalp: Skull is intact with no soft tissue edema or swelling. CT/CT head wo con* [id number] IMPRESSION: 1. Intravascular contrast from a recent cardiac CT angiogram would obscure sma ll areas of acute hemorrhage. 2. Mild atrophy and moderate chronic microvascular ischemic type changes. No l arge hemorrhage.
--- NOTE | 2021-04-27 14:51 | CT_ITS ---
WS: [id number] CT angio headneck* [id number] REASON FOR EXAM: stroke alert protocol TECHNIQUE: Coronal and sagittal 2-D and MIP reformations. IV CONTRAST ADMINISTERED: 71 mL of Omnipaque 350 TOTAL EXAM DLP: 2016.[address] scans at [facility] use at least one of these dose optimization techniques: automat ed exposure control; mA and/or kV adjustment per patient size (includes targeted exams where dose is matched to clinical indication); or iterative reconstruction. FINDINGS: ARCH: Normal origin of the innominate artery. Normal origin of left common carotid artery. 30-40% stenosis of the origin of the left subclavian artery by calcified plaque Normal origin of the left vertebral artery Significant stenosis of the origin of the right vertebral artery by calcified plaque CERVICAL: Normal cervical common carotid and vertebral arteries. 30-40% stenosis of the origins of the internal carotid arteries by calcified plaque. Significant calc ification of the carotid siphons without significant stenosis. Calcified plaque within the vertebral arteries at the level of the foramen magnum without significant stenosis. The origin of the basilar artery is normal. INTRACRANIAL: Carotid terminus is normal bilaterally. The anterior and middle cerebral arterial circulations demonstrate no significant stenosis, thrombus, aneurysm, or arteriovenous malformation. The posterior cerebral arterial circulation demonstrates no significant stenosis, thrombus, aneurysm, or arteriovenous malformation. No focal brain parenchymal abnormality identified on the postcontrast brain. CT/CT angio headneck* [id number] IMPRESSION: Significant stenosis in the origin of the right vertebral artery. 30-40% stenosis in the origin of the left subclavian artery. 30-40% stenosis in the origin of the internal carotid arteries. No arterial thrombus or significant stenosis.
--- NOTE | 2021-04-27 14:53 | PC.NURSE ---
Received a call from CT scan for a Stroke Protocol Informed Dr. Russell, Cat scan team that pt had post angiogram today with contrast. Per Dr. Russell order they have to do a CTA head and neck.
[2021-04-27] MEDS: iohexol 350 mg/mL 100 mL Btl IV (14:54)
[2021-04-27 15:18] LABS: Glucose Point of Care 118 mg/dL (70-110)
[2021-04-27] MEDS: cyclobenzaprine 10 mg Tablet PO (16:08)
[2021-04-27] MEDS: acetaminophen 325 mg Tablet 650 MG PO (16:08)
[2021-04-27] MEDS: ibuprofen 800 mg tablet PO ×2 (16:09→20:43)
--- NOTE | 2021-04-27 17:30 | PC.NURSE ---
Removed TR band and patient had oozing at the sit. 2x2 drsg applied. TR band replaced.
[2021-04-27] MEDS: ranolazine (12HR) 500 mg Tablet PO (17:51)
--- NOTE | 2021-04-27 19:02 | PC.NURSE ---
Received report from EDISON Loco. Patient resting in bed watching TV. Patient s/p angiogram with right wrist access. Dressing in place to site with no s/s of bleeding or hematoma formation observed. Instructed patient on new medication Plavix. Patient verbalized complete understanding. Patient c/o pain 5/10 chronically denies other needs or complaints. No distress observed. Will continue to monitor.
[2021-04-27 20:07] LABS: Glucose Point of Care 81 mg/dL (70-110)
[2021-04-27] MEDS: temazepam 15 mg Capsule PO (20:42)
[2021-04-27] MEDS: atorvastatin 40 mg Tablet 80 MG PO (20:43)
[2021-04-27] MEDS: gabapentin 300 mg Capsule PO (20:43)
[2021-04-27] MEDS: clopidogrel 75 mg Tablet PO (20:43)
--- NOTE | 2021-04-27 21:25 | P.CONIM_ITS ---
Providers/Reason For Consult Consulting Physician/Specialty*: Edmund Hernandez MD Reason for Consult*: TIA Attending Physician: Liz Russell MD Primary Care Provider: Agnes Dee APN History of Present Illness History of Present Illness Nirali Beaulieu is a 75 year old female with PMH of Hypothyroidism, HTN, DM, CAD, PAD was here in the hospital for Elective PAG for her bilateral exertional claudication and a nonhealing ulcer in the left leg. Post PAG at around 2:40 PM Stroke alert was called by the nurse as the patient was having difficulty with speech as well as numbness in rt upper extremity,symptoms lasted transiently for very short time. on the way to C.T her speech was normal as well as her rt side upper extremity numbness was resolved. When I saw the patient her NIHSS was :0 C.T Head without contrast :No acute intra cranial pathology. CTA the head and neck: high-grade gnosis at the origin of the right vertebral artery. 30 to 40% stenosis was noted internal carotid arteries. Left subclavian artery also was found to have around 30 to 40% stenosis. Pertinent Labs were unremarkable. Medicine was consulted for TIA. Review of Systems Const: Denies: fever(s), chills, body aches, change in appetite or diaphoresis Card: Denies: palpitations, edema, swelling of feet/ankles, dyspnea on exert ion or orthopnea Resp: Denies: dyspnea, productive cough, wheezing or pain on inspiration GI: Denies: abdominal pain, nausea, vomiting, diarrhea or constipation : Denies: flank pain Musc: Denies: back pain Neuro: Denies: headache(s) or confusion Meds/Allergies Home Medications and Allergies Home Medications Medication Instructions Recorded Confirmed Last Taken Type aspirin 81 mg tablet,delayed 81 mg PO QDAY 09/06/19 04/27/21 04/26/21 09:00 History release diltiazem HCl 180 mg capsule,24 180 mg PO QAM 09/06/19 04/27/21 04/26/21 09:00 History hr,extended release fenofibrate nanocrystallized 145 145 mg PO QDAY 09/06/19 04/27/21 04/26/21 09:00 History mg tablet gabapentin 300 mg capsule 300 mg PO .HS cap 09/06/19 04/27/21 04/26/21 21:00 History glipizide 10 mg tablet 20 mg PO BID tab 09/06/19 04/27/21 04/26/21 09:00 History hydrochlorothiazide 25 mg tablet 25 mg PO QAM 09/06/19 04/27/21 04/26/21 09:00 History isosorbide mononitrate 30 mg 30 mg PO QAM 09/06/19 04/27/21 04/26/21 09:00 His tory tablet,extended release 24 hr levothyroxine 175 mcg tablet 175 mcg PO QDAY 09/06/19 04/27/21 04/26/21 09:00 History linagliptin 5 mg tablet 5 mg PO QAM 09/06/19 04/27/21 04/26/21 09:00 History nitroglycerin 0.4 mg sublingual 0.4 mg SUBLINGUAL Q5M PRN 09/06/19 04/27/21 04/26/21 09:00 History tablet rosuvastatin 40 mg tablet 40 mg PO .HS tab 09/06/19 04/27/21 04/26/21 21:00 History albuterol sulfate 2.5 mg INHALATION QID PRN #180 ml 09/08/19 04/27/21 04/26/21 09:00 Rx nebulizer accessories #1 each 09/08/19 04/27/21 Unknown Rx nebulizers #1 each 09/08/19 04/27/21 Unknown Rx ibuprofen 800 mg PO Q8H PRN #30 tab 08/07/20 04/27/21 04/26/21 21:00 Rx ranolazine 500 mg tablet,extended 500 mg PO BID 11/17/20 04/27/21 04/26/21 09:00 History release,12 hr cyclobenzaprine 5 mg tablet 20 mg PO TID PRN tab 03/21/21 04/27/21 04/26/21 21:00 History insulin degludec 100 unit/mL (3 20 unit SUBCUT DAILY ml 03/21/21 04/27/21 04/26/21 09:00 History mL) subcutaneous pen atenolol 50 mg tablet 50 mg PO DAILY #30 tab 04/17/21 04/27/21 04/26/21 09:00 Rx clopidogrel 75 mg PO DAILY 30 Days #30 tab 04/28/21 Unknown Rx Allergies Allergy/AdvReac Type Severity Reaction Status Date / Time Sulfa (Sulfonamide Allergy RASH Verified 04/27/21 11:54 Antibiotics) tetanus toxoid, adsorbed Allergy Unknown Verified 04/27/21 11:54 metformin AdvReac DIARRHEA Verified 04/27/21 11:54 Penicillins AdvReac RASH Verified 04/27/21 11:54 Current Medications Current Medications Generic Name Dose Route Start Last Admin Trade Name Freq PRN Reason Stop Dose Admin Acetaminophen 650 mg 04/27/21 13:16 04/27/21 16:08 Acetaminophen 325 Mg Tablet PO 650 mg Q6H PRN Administration MILD PAIN Atorvastatin Calcium 80 mg 04/27/21 21:00 04/27/21 20:43 Atorvastatin 40 Mg Tablet PO 80 mg BEDTIME ORIANA Administration Clopidogrel Bisulfate 75 mg 04/27/21 18:50 04/27/21 20:43 Clopidogrel 75 Mg Tablet PO 75 mg DAILY ORIANA Administration Cyclobenzaprine HCl 10 mg 04/27/21 13:15 04/27/21 16:08 Cyclobenzaprine 10 Mg Tablet PO 10 mg TID PRN Administration muscle spasm Gabapentin 300 mg 04/27/21 13:15 04/27/21 20:43 Gabapentin 300 Mg Capsule PO 300 mg .HS ORIANA Administration Sodium Chloride 1,000 mls @ 50 mls/hr 04/27/21 11:58 04/27/21 12:03 Sodium Chloride 0.9% IV 04/28/21 07:57 Not Given .Q20H ONE Ibuprofen 800 mg 04/27/21 13:15 04/27/21 20:43 Ibuprofen 800 Mg Tablet PO 800 mg Q8H PRN Administration pain Insulin Aspart 0 unit 04/27/21 21:00 04/27/21 20:46 Insulin Aspart 100 Unit/1 Ml SUBCUT Not Given WM&BEDTIME ORIANA Protocol Ranolazine 500 mg 04/27/21 18:00 04/27/21 17:51 Ranolazine (12hr) 500 Mg Tablet PO 500 mg BID ORIANA Administration Temazepam 15 mg 04/27/21 13:16 04/27/21 20:42 Temazepam 15 Mg Capsule PO 15 mg BEDTIME PRN Administration INSOMNIA PFSH Acute PFSH: Medical History Atherosclerotic cardiovascular disease Atherosclerotic heart disease [place] coronary artery w/angina pectoris Cataracts, bilateral Diabetes Dyslipidemia GERD (gastroesophageal reflux disease) Hypersomnia Hypertension Hypothyroidism Seasonal allergies Surgical History History of cholecystectomy History of hysterectomy Family History Mother CAD (coronary artery disease) Diabetes Stroke Sister Cancer Diabetes Lung disease Other Hypertension Denies family history of Clotting disorder Dementia Chronic kidney disease (CKD) Suicide Anesthesia complication Bleeding disorder Social History Smoking and tobacco status: current every day smoker Alcohol intake: never Marital status: History of recent travel: No Current gender identity: Female Vitals/I&O/Wt Last Vital Signs Temp 98.8 F 04/27/21 18:52 Pulse 109 H 04/27/21 18:52 Resp 20 H 04/27/21 18:52 BP 156/71 04/27/21 18:52 Pulse Ox 97 04/27/21 18:52 04/27/21 04/27/21 04/27/21 06:59 14:59 22:59 Intake Total 460 / 460 Output Total 580 / 580 Balance -120 / -120 Weight last 48 hrs Weight 72.575 kg Physical Exam Narrative: EXAM NARRATIVE: No focal neurological deficit. Const: COMMON NORMALS: patient oriented x3 HENMT: COMMON NORMALS: normocephalic and atraumatic HEAD & SCALP: normocephalic and atraumatic Chest: CHEST: Yes Symmetrical chest wall rise Resp: COMMON NORMALS: normal respiratory effort, No retractions, No use of accessory muscles and clear to auscultation bilaterally EFFORT & INSPECTION: Yes symmetric chest movement AUSCULTATION: clear to auscultation bilaterally Cardio: COMMON NORMALS: regular rate, regular rhythm, S1 normal heart sound present, S2 normal heart sound present, No gallops present (Cardio), No murmurs present (Cardio), No rub (Cardio) and Peripheral pulses 2+ throughout RATE: regular rate RHYTHM: regular rhythm HEART SOUNDS: S1 normal heart sound present and S2 normal heart sound present PERIPHERAL PULSES: Peripheral pulses 2+ throughout GI: COMMON NORMALS: Normal to inspection, nondistended, normoactive bowel sounds present, Soft to palpation, non-tender, No hepatosplenomegaly present and no masses AUSCULTATION: Yes normoactive bowel sounds PALPATION: Yes Soft to palpation and Yes No hepatosplenomegaly present RECTAL EXAM: deferred Extremity: COMMON NORMALS: no clubbing, cyanosis or edema and no pedal edema OTHER: Non healing ulcer in the left leg above the ankle. The dorsalis pedis and posterior pulses are nonpalpable bilaterally Neuro: COMMON NORMALS: patient oriented x3 A&P Assessment and plan (1) TIA (transient ischemic attack): Kindly start patient on Aspirin ( 81 mg po daily ) , plavix ( 75 mg po daily ) and statin ( 40 mg po daily ) Tele monitoring She is not a candidate for Tpa Permissive HTN for next 24Hrs Neurocheck q2h Fall Precaution NPO excepts for meds Aspiration Precaution Neurology follow up as outpatient Thanks for consulting. 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
[2021-04-28 00:13] VITALS: BP 131/64; PULSE 106; RESP 24; O2SAT 82
--- NOTE | 2021-04-28 01:24 | PC.NURSE ---
Patient resting comfortably with eyes closed, even respirations observed. No pain present per FLACC. No other distress observed. Will continue to monitor..
[2021-04-28 04:29] LABS: Basophils # 0.1 10^3/uL (0.0-0.1); Basophils % 0.8 %; Eosinophils # 0.2 10^3/uL (0.0-0.8); Hematocrit 47.6 % (37.0-47.0); Hemoglobin 15.5 g/dL (11.5-15.3); Lymphocytes # 2.7 10^3/uL (0.8-4.8); Lymphocytes % 26.3 %; Mean Corpuscular HGB Conc 32.6 g/dL (30.0-36.0); Mean Corpuscular Hemoglobin 29.1 pg (28.0-34.0); Mean Corpuscular Volume 89.5 fl (81-99); Mean Platelet Volume 8.6 fL (7.4-10.4); Monocytes # 1.1 10^3/uL (0.2-0.9); Monocytes % 11.2 %; Neutrophils # 5.99 10^3/uL (1.8-7.7); Neutrophils % 59.1 %; Nucleated Red Blood Cells % 0 %; Platelet Count 226 10^3/cmm (130-400); Red Blood Count 5.32 10^6/uL (4.1-5.3); Red Cell Distribution Width 14.7 % (12.1-15.1); White Blood Count 10.1 10^3/uL (4.0-10.0)
[2021-04-28 04:32] VITALS: BP 141/77; PULSE 98; RESP 18; O2SAT 90
[2021-04-28] MEDS: hydroCHLOROthiazide 25 mg Tablet PO (04:33)
[2021-04-28] MEDS: dilTIAZem ER (24HR) 180 mg Capsule PO (04:33)
[2021-04-28] MEDS: isosorbide mononitrate ER 30 mg Tablet PO (04:33)
[2021-04-28 04:37] LABS: INR 0.98 (0.8-1.2)
[2021-04-28 04:38] LABS: Partial Thromboplastin Time 28.7 SECONDS (23.9-36.7)
[2021-04-28] MEDS: ibuprofen 800 mg tablet PO (04:43)
[2021-04-28 05:01] LABS: Alanine Aminotransferase 14 U/L (0-33); Albumin Level 3.7 g/dL (3.5-5.2); Alkaline Phosphatase 61 IU/L (35-105); Aspartate Amino Transferase 16 U/L (0-32); Blood Urea Nitrogen 10 mg/dL (8-23); Carbon Dioxide 26 mmol/L (22-29); Chloride 103 mmol/L (98-107); Globulin 1.9 g/dL (1.3-4.6); Glucose 71 mg/dL (65-115); Osmolality Calculated 286 mOsm/kg (285-295); Sodium 139 mmol/L (136-145); Total Bilirubin 0.3 mg/dL (0.15-1.2); Total Protein 5.6 g/dL (6.6-8.7)
[2021-04-28 05:03] LABS: Anion Gap 13.8 (5-19)
[2021-04-28 05:04] LABS: Potassium 3.8 mmol/L (3.5-5.1)
[2021-04-28 05:59] VITALS: PULSE 98
[2021-04-28 06:45] LABS: Glucose Point of Care 127 mg/dL (70-110)
--- NOTE | 2021-04-28 06:47 | PC.NURSE ---
Shift Note Frequent safety and comfort rounds continue. Orders and/or nursing care completed as indicated. Patient monitored for response to intervention and treatment(s). Education provided includes plavix. Patient verbalized complete understanding. Patient reports having slept well this night stating, I rarely sleep more than a couple hours at a time. I had a great nights sleep. Patient denies other needs. No distress observed. Will continue to monitor.
[2021-04-28 07:54] VITALS: BP 106/53; PULSE 97; RESP 17; TEMP 37; O2SAT 93
[2021-04-28] MEDS: levothyroxine 175 mcg Tablet PO (08:59)
[2021-04-28] MEDS: atenolol 50 mg Tablet PO (09:00)
[2021-04-28] MEDS: ranolazine (12HR) 500 mg Tablet PO (09:00)
[2021-04-28] MEDS: aspirin 81 mg EC Tablet PO (09:00)
[2021-04-28] MEDS: clopidogrel 75 mg Tablet PO (09:00)
[2021-04-28] MEDS: fenofibrate 145 mg Tablet PO (09:00)
--- NOTE | 2021-04-28 09:49 | P.PN_ITS ---
Subjective Subjective: Interval history: Patient has not had a recurrence of TIA symptoms since last evening. Denies any chest pain or chest tightness. No other specific complaints. Medications: Reviewed: Yes Medication Review Details: Current Medications Acetaminophen (Acetaminophen 325 Mg Tablet) 650 mg PO Q6H PRN PRN Reason: MILD PAIN Last Admin: 04/27/21 16:08 Dose: 650 mg Documented by: Acetaminophen (Acetaminophen 325 Mg Tablet) 650 mg PO Q6H PRN PRN Reason: Mild/Mod Pain Or Temp >/= 101 Al Hydrox/Mg Hydrox/Simethicone (Yitk-Zlg-Qeucvrnvw-Tobin 30 Ml Udc) 30 ml PO Q15M PRN PRN Reason: INDIGESTION Albuterol Sulfate (Albuterol 2.5 Mg/0.5 Ml Neb) 2.5 mg INHALATION QID PRN PRN Reason: shortness of breath or wheezing Aspirin (Aspirin 81 Mg Ec Tablet) 81 mg PO DAILY [facility] Last Admin: 04/28/21 09:00 Dose: 81 mg Documented by: Atenolol (Atenolol 50 Mg Tablet) 50 mg PO DAILY [facility] Last Admin: 04/28/21 09:00 Dose: 50 mg Documented by: Atorvastatin Calcium (Atorvastatin 40 Mg Tablet) 80 mg PO BEDTIME [facility] Last Admin: 04/27/21 20:43 Dose: 80 mg Documented by: Atropine Sulfate (Atropine 1 Mg/Ml Sdv 1 Ml) 0.5 mg IVP PRN PRN PRN Reason: Symptomatic bradycardia Clopidogrel Bisulfate (Clopidogrel 75 Mg Tablet) 75 mg PO DAILY [facility] Last Admin: 04/28/21 09:00 Dose: 75 mg Documented by: Cyclobenzaprine HCl (Cyclobenzaprine 10 Mg Tablet) 10 mg PO TID PRN PRN Reason: muscle spasm Last Admin: 04/27/21 16:08 Dose: 10 mg Documented by: Dextrose (Dextrose 50% Syringe 50 Ml) 25 ml IVP ONCE PRN; Protocol PRN Reason: hypoglycemia protocol Dextrose (Dextrose 50% Syringe 50 Ml) 50 ml IVP PRN PRN; Protocol PRN Reason: hypoglycemia protocol Diltiazem HCl (Diltiazem Er (24hr) 180 Mg Capsule) 180 mg PO QAM [facility] Last Admin: 04/28/21 04:33 Dose: 180 mg Documented by: Fenofibrate (Fenofibrate 145 Mg Tablet) 145 mg PO DAILY [facility] Last Admin: 04/28/21 09:00 Dose: 145 mg Documented by: Fentanyl (Fentanyl 50 Mcg/Ml Inj 2ml) 50 mcg IVP PRN PRN PRN Reason: Prior to sheath removal Gabapentin (Gabapentin 300 Mg Capsule) 300 mg PO .[facility] Last Admin: 04/27/21 20:43 Dose: 300 mg Documented by: Glucagon (Glucagon 1 Mg/Ml Inj 1 Ml) 1 mg IM ONCE PRN; Protocol PRN Reason: Adult Acute Hypoglycemia Prot. Hydrochlorothiazide (Hydrochlorothiazide 25 Mg Tablet) [facility] [place] [place] Last Admin: 04/28/21 04:33 Dose: 25 mg Documented by: Dextrose (D5w) 500 mls @ 100 mls/hr IV ONCE PRN; Protocol PRN Reason: Adult Acute Hypoglycemia Prot Ibuprofen (Ibuprofen 800 Mg Tablet) 800 mg PO Q8H PRN PRN Reason: pain Last Admin: 04/28/21 04:43 Dose: 800 mg Documented by: Insulin Aspart (Insulin Aspart 100 Unit/1 Ml) 0 unit SUBCUT WM&BEDTIME [facility]; Protocol Last Admin: 04/28/21 08:45 Dose: Not Given Documented by: Isosorbide Mononitrate (Isosorbide Mononitrate Er 30 Mg Tablet) [facility] [place] [place] Last Admin: 04/28/21 04:33 Dose: 30 mg Documented by: Levothyroxine Sodium (Levothyroxine 175 Mcg Tablet) 175 mcg PO DAILY [facility] Last Admin: 04/28/21 08:59 Dose: 175 mcg Documented by: Magnesium Hydroxide (Magnesium Hydroxide 30 Ml Udc) 30 ml PO DAILY PRN PRN Reason: CONSTIPATION Naloxone HCl (Naloxone 0.4 Mg/Ml Sdv) 0.1 mg IVP Q2M PRN PRN Reason: RESPIRATORY RATE < 8/MIN Nitroglycerin (Nitroglycerin 0.4 Mg Sublingual Tablet) 0.4 mg SUBLINGUAL Q5M PRN PRN Reason: Chest Pain Non-Formulary Medication (Glipizide) 20 mg PO BID [facility] Non-Formulary Medication (Insulin Degludec) 20 unit SUBCUT DAILY [facility] Non-Formulary Medication (Linagliptin [Tradjenta]) [facility] [place] [place] Ondansetron HCl (Ondansetron 2 Mg/Ml Sdv 2 Ml) 4 mg IVP Q8H PRN PRN Reason: vomiting, or N/V if npo Ranolazine (Ranolazine (12hr) 500 Mg Tablet) 500 mg PO BID [facility] Last Admin: 04/28/21 09:00 Dose: 500 mg Documented by: Temazepam (Temazepam 15 Mg Capsule) 15 mg PO BEDTIME PRN PRN Reason: INSOMNIA Last Admin: 04/27/21 20:42 Dose: 15 mg Documented by: Vitals/I&O/Wt Last Vital Signs Temp 98.6 F 04/28/21 07:54 Pulse 97 04/28/21 07:54 Resp 17 04/28/21 07:54 BP 106/53 04/28/21 07:54 Pulse Ox 93 04/28/21 07:54 04/27/21 04/28/21 04/28/21 22:59 06:59 14:59 Intake Total 460 / 460 420 / 880 360 / 360 Output Total 580 / 580 Balance -120 / -120 420 / 300 360 / 360 Weight last 48 hrs Weight 160 lb Physical Exam Narrative: EXAM NARRATIVE: GENERAL: The patient is alert and oriented times three. Not in any acute distress. HEENT: No significant pallor, icterus or lymphadenopathy.Oral cavity: There are no mucous membrane lesions. NECK: Trachea appears to be central. No masses noted. No JVD or thyromegaly appreciated. RESPIRATORY: Chest is symmetrical. No intercostals muscle retraction or any accessory muscle activation. There is no chest wall tenderness. Breath sounds are heard bilaterally. No rales or rhonchi heard. No evidence of any consolidation. BREASTS: Deferred. HEART: The heart sounds are normal. No S3 or S4. Short systolic murmur in the left sternal border. No diastolic murmurs.. No pericardial rub ABDOMEN: No vessel pulsations or distention. No tenderness. No organomegaly appr eciated. Bowel sounds are normally heard. : Deferred. RECTAL: Deferred. LYMPHATIC: No lymphadenopathy noted in the neck or groin. EXTREMITIES: No edema or cyanosis. No clubbing. Nonhealing ulcer in the left leg above the ankle. The dorsalis pedis and posterior pulses are nonpalpable bilaterally MUSCULOSKELETAL: No acute joint deformities or swelling SKIN: There are no significant rashes or ecchymosis NEUROPSYCHIATRIC: The patient is alert and oriented x3. Appears to be in a good mood. No tremors or rigidity noted. Data : 04/28/21 03:45 04/28/21 03:45 A&P Assessment and plan (1) Peripheral Vascular Disease: Patient has the abdominal aortogram with runoff. She was found to have total occlusion of the common iliac arteries bilaterally at the ostia. Bridging collaterals were noted bilaterally. I reviewed the angiogram data with Dr. Jordan. It was thought to be appropriate to consider surgical revascularization. I will be consulting Dr. Garza as an outpatient for further management. Status: Acute (2) Atherosclerotic cardiovascular disease: Patient is currently asymptomatic. We will continue on the current medications. If she is going for surgical procedure, we may consider doing a myocardial perfusion imaging, to evaluate for any underlying coronary ischemia. 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 Continue on the current medications. Status: Acute Qualifiers: Hypertension type: essential hypertension Qualified Code(s): I10 - Essential (primary) hypertension (5) Dyslipidemia: Status: Acute Additional A&P Information Other problems are as outlined before. 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
[2021-04-28 10:26] VITALS: PULSE 81; RESP 18; O2SAT 96
[2021-04-28 10:55] VITALS: BP 139/70; PULSE 88; RESP 18; O2SAT 96
[2021-04-28 10:57] LABS: Glucose Point of Care 194 mg/dL (70-110)
--- NOTE | 2021-04-30 09:00 | PC.SOCIAL ---
discharge follow up call made. spoke with patient. patient given follow up appointment with Dr. Pinto. Patient notified that heartcare services will call her with follow up appointment with Dr. Sheridan and Dr. Russell. Publication Director will also call heartcare services this afternoon to make sure appointment has been made. Patient is aware to not lift more than 5 lbs, right hand the next 3 days. patient is changing dressing daily. Advised pt is she had any unusual swelling or pain to call Dr. Sheridan's office or go to the ED.
--- NOTE | 2021-04-30 11:28 | PC.SOCIAL ---
called patient and let her know when her appointments will be with Dr. Garza and Dr. Russell.
--- NOTE | 2021-04-30 14:35 | PC.RESP ---
SMOKING CESSATION AND PULMONARY REHAB INFORMATION SENT TO PATIENT.
== END 2021-04-28 12:05 | disposition home or self-care (01) ==
LOC: CSU 13:20
PROVIDERS: Internal Medicine; Admitting Provider Internal Medicine Cardiovascular Disease; PCP Nurse Practitioner Family; Visit Provider Internal Medicine Cardiovascular Disease
DX: I73.9 Peripheral vascular disease, unspecified (principal); I25.10 Atherosclerotic heart disease of native coronary artery without angina pectoris; E11.65 Type 2 diabetes mellitus with hyperglycemia; Z79.4 Long term (current) use of insulin; I10 Essential (primary) hypertension; E78.5 Hyperlipidemia, unspecified; Z79.82 Long term (current) use of aspirin; E03.9 Hypothyroidism, unspecified; Z82.49 Family history of ischemic heart disease and other diseases of the circulatory system; Z83.3 Family history of diabetes mellitus; Z82.3 Family history of stroke; F17.210 Nicotine dependence, cigarettes, uncomplicated; E66.9 Obesity, unspecified; Z68.29 Body mass index [BMI] 29.0-29.9, adult
CPT/HCPCS: 36415; 36416; 70450; 70496; 70498; 75625; 80053; 82962; 83735; 85025; 85610; 85730; C1769; C1887; C1894; G0378; J1644; J2250; J3010; J3490; J7030; Q9967

== ENCOUNTER 2021-05-03 10:34 | Outpatient (CLI) | payer MEDICARE, MEDICAID, SELFPAY | END 2021-05-03 10:35 | disposition home or self-care (01) | LOC: WOUND 10:36 | PROVIDERS: PCP Nurse Practitioner Family; Visit Provider Emergency Medicine | DX: I73.9 Peripheral vascular disease, unspecified (principal); E11.622 Type 2 diabetes mellitus with other skin ulcer; L97.822 Non-pressure chronic ulcer of other part of left lower leg with fat layer exposed; F17.210 Nicotine dependence, cigarettes, uncomplicated | CPT/HCPCS: 11042 ==

== ENCOUNTER → 2021-05-07 12:51 | Outpatient (BNVA) | payer MEDICARE, MEDICAID, SELFPAY | PROVIDERS: PCP Nurse Practitioner Family; Visit Provider Specialist | DX: I65.01 Occlusion and stenosis of right vertebral artery (principal); I73.9 Peripheral vascular disease, unspecified; G31.83 Neurocognitive disorder with Lewy bodies; F02.80 Dementia in other diseases classified elsewhere, unspecified severity, without behavioral disturbance, psychotic disturbance, mood disturbance, and anxiety; F06.0 Psychotic disorder with hallucinations due to known physiological condition; F17.210 Nicotine dependence, cigarettes, uncomplicated | CPT/HCPCS: 96116; 99205 ==

== ENCOUNTER 2021-05-24 11:15 | Outpatient (CLI) | payer MEDICARE, MEDICAID, SELFPAY | END 2021-05-24 11:16 | disposition home or self-care (01) | LOC: WOUND 11:25 | PROVIDERS: PCP Nurse Practitioner Family; Visit Provider Emergency Medicine | DX: I73.9 Peripheral vascular disease, unspecified (principal); L97.822 Non-pressure chronic ulcer of other part of left lower leg with fat layer exposed; F17.210 Nicotine dependence, cigarettes, uncomplicated | CPT/HCPCS: 11042 ==

== ENCOUNTER 2021-05-31 13:02 | Outpatient (CLI) | payer MEDICARE, MEDICAID, SELFPAY | END 2021-05-31 13:03 | disposition home or self-care (01) | LOC: WOUND 13:03 | PROVIDERS: PCP Nurse Practitioner Family; Visit Provider Emergency Medicine | DX: I73.9 Peripheral vascular disease, unspecified (principal); L97.822 Non-pressure chronic ulcer of other part of left lower leg with fat layer exposed | CPT/HCPCS: 11042 ==

== ENCOUNTER 2021-06-14 13:38 | Outpatient (CLI) | payer MEDICARE, MEDICAID, SELFPAY | END 2021-06-14 13:39 | disposition home or self-care (01) | LOC: WOUND 13:38 | PROVIDERS: PCP Nurse Practitioner Family; Visit Provider Nurse Practitioner Family | DX: I73.9 Peripheral vascular disease, unspecified (principal); L97.822 Non-pressure chronic ulcer of other part of left lower leg with fat layer exposed; F17.210 Nicotine dependence, cigarettes, uncomplicated | CPT/HCPCS: 11042 ==

== ENCOUNTER 2021-06-28 10:54 | Outpatient (CLI) | payer MEDICARE, MEDICAID, SELFPAY | END 2021-06-28 10:55 | disposition home or self-care (01) | LOC: WOUND 10:55 | PROVIDERS: PCP Nurse Practitioner Family; Visit Provider Nurse Practitioner Family | DX: E11.622 Type 2 diabetes mellitus with other skin ulcer (principal); I73.9 Peripheral vascular disease, unspecified; L97.821 Non-pressure chronic ulcer of other part of left lower leg limited to breakdown of skin; J44.9 Chronic obstructive pulmonary disease, unspecified; I10 Essential (primary) hypertension; F17.210 Nicotine dependence, cigarettes, uncomplicated | CPT/HCPCS: 11042; A6212 ==

== ENCOUNTER 2021-07-12 11:01 | Outpatient (CLI) | payer MEDICARE, MEDICAID, SELFPAY | END 2021-07-12 11:02 | disposition home or self-care (01) | LOC: WOUND 11:02 | PROVIDERS: PCP Nurse Practitioner Family; Visit Provider Emergency Medicine | DX: E11.622 Type 2 diabetes mellitus with other skin ulcer (principal); L97.821 Non-pressure chronic ulcer of other part of left lower leg limited to breakdown of skin; I73.9 Peripheral vascular disease, unspecified; F17.210 Nicotine dependence, cigarettes, uncomplicated; J44.9 Chronic obstructive pulmonary disease, unspecified | CPT/HCPCS: 11042 ==

== ENCOUNTER 2021-07-19 10:49 | Outpatient (CLI) | payer MEDICARE, MEDICAID, SELFPAY | END 2021-07-19 10:50 | disposition home or self-care (01) | LOC: WOUND 10:50 | PROVIDERS: PCP Nurse Practitioner Family; Visit Provider Emergency Medicine | DX: Z09 Encounter for follow-up examination after completed treatment for conditions other than malignant neoplasm (principal); F17.210 Nicotine dependence, cigarettes, uncomplicated; J44.9 Chronic obstructive pulmonary disease, unspecified | CPT/HCPCS: G0463 ==

== ENCOUNTER 2021-08-21 13:09 | Outpatient (CLI) | payer MEDICARE, MEDICAID, SELFPAY | END 2021-08-21 13:10 | disposition home or self-care (01) | LOC: WOUND 13:11 | PROVIDERS: PCP Nurse Practitioner Family; Visit Provider Emergency Medicine | DX: E11.622 Type 2 diabetes mellitus with other skin ulcer (principal); L97.822 Non-pressure chronic ulcer of other part of left lower leg with fat layer exposed; F17.210 Nicotine dependence, cigarettes, uncomplicated; J44.9 Chronic obstructive pulmonary disease, unspecified | CPT/HCPCS: 11042; 87070; 87176; 87205; 99213 ==

== ENCOUNTER 2021-08-28 10:24 | Outpatient (CLI) | payer MEDICARE, MEDICAID, SELFPAY | END 2021-08-28 10:25 | disposition home or self-care (01) | LOC: WOUND 10:26 | PROVIDERS: PCP Nurse Practitioner Family; Visit Provider Emergency Medicine | DX: E11.622 Type 2 diabetes mellitus with other skin ulcer (principal); L97.821 Non-pressure chronic ulcer of other part of left lower leg limited to breakdown of skin; F17.210 Nicotine dependence, cigarettes, uncomplicated; J44.9 Chronic obstructive pulmonary disease, unspecified | CPT/HCPCS: 97597; A6212 ==

== ENCOUNTER → 2021-09-03 10:40 | Outpatient (BNVA) | payer MEDICARE, MEDICAID, SELFPAY | PROVIDERS: PCP Nurse Practitioner Family; Visit Provider Internal Medicine | DX: I73.9 Peripheral vascular disease, unspecified (principal); I25.119 Atherosclerotic heart disease of native coronary artery with unspecified angina pectoris; I10 Essential (primary) hypertension; Z01.818 Encounter for other preprocedural examination | CPT/HCPCS: 80048; 85025; 85610 ==

== ENCOUNTER 2021-09-04 10:47 | Outpatient (CLI) | payer MEDICARE, MEDICAID, SELFPAY | END 2021-09-04 10:48 | disposition home or self-care (01) | LOC: WOUND 10:48 | PROVIDERS: PCP Nurse Practitioner Family; Visit Provider Emergency Medicine | DX: Z09 Encounter for follow-up examination after completed treatment for conditions other than malignant neoplasm (principal); F17.210 Nicotine dependence, cigarettes, uncomplicated; J44.9 Chronic obstructive pulmonary disease, unspecified; E11.9 Type 2 diabetes mellitus without complications | CPT/HCPCS: 99212 ==

== ENCOUNTER 2021-09-05 07:20 | Outpatient (CLI) | payer MEDICARE, MEDICAID, SELFPAY ==
[2021-09-03 16:04] LABS: Adenovirus Not Detected (NOT DETECT); Chlamydia Pneumoniae Not Detected (NOT DETECT); Coronavirus 229E,HKU1,NL63,OC4 Not Detected (NOT DETECT); Human Metapneumovirus Not Detected (NOT DETECT); Human Rhinovirus/Enterovirus Not Detected (NOT DETECT); Influenza A Not Detected (NOT DETECT); Influenza A H1 Not Detected (NOT DETECT); Influenza A H1-2009 Not Detected (NOT DETECT); Influenza A H3 Not Detected (NOT DETECT); Influenza B Not Detected (NOT DETECT); Mycoplasma Pneumoniae Not Detected (NOT DETECT); Parainfluenza Virus Type 1 Not Detected (NOT DETECT); Parainfluenza Virus Type 2 Not Detected (NOT DETECT); Parainfluenza Virus Type 3 Not Detected (NOT DETECT); Parainfluenza Virus Type 4 Not Detected (NOT DETECT); Respiratory Syncytial Virus A Not Detected (NOT DETECT); Respiratory Syncytial Virus B Not Detected (NOT DETECT); SARS-COV-2 Not Detected (NOT DETECT)
[2021-09-05 07:45] VITALS: BP 161/72; PULSE 94; RESP 18; TEMP 36.5; O2SAT 98; BMI 29.2
[2021-09-05] MEDS: diphenhydrAMINE 50 mg Capsule PO (07:45)
--- NOTE | 2021-09-05 10:34 | PC.NURSE ---
Unable to start procedure today due to high risk and no bed availability. IV catheter removed, patient sent home with hand written prescription to cilostazol. Verbal orders received from to reschedule patient within next 1-2 weeks. Patient taken to car via wheelchair.
== END 2021-09-05 07:21 | disposition home or self-care (01) ==
PROVIDERS: PCP Nurse Practitioner Family; Visit Provider Internal Medicine Cardiovascular Disease
DX: I73.9 Peripheral vascular disease, unspecified (principal); Z53.8 Procedure and treatment not carried out for other reasons
CPT/HCPCS: 87635; J1644; Q0163

== ENCOUNTER → 2021-09-07 16:06 | Outpatient (BNVA) | payer MEDICARE, MEDICAID, SELFPAY | PROVIDERS: PCP Nurse Practitioner Family; Visit Provider Internal Medicine | DX: Z01.812 Encounter for preprocedural laboratory examination (principal); Z20.822 Contact with and (suspected) exposure to COVID-19 | CPT/HCPCS: 87635 ==

== ENCOUNTER 2021-10-17 07:05 | Outpatient (CLI) | payer MEDICARE, MEDICAID, SELFPAY ==
[2021-10-17] VITALS (19 sets, daily range): BP systolic 120–170; BP diastolic 56–81; PULSE 100–112; RESP 5–25; TEMP 36.7–37.1; O2SAT 91–94; BMI 29.2
--- NOTE | 2021-10-17 07:00 | XACV_ITS ---
Ht: 157 cm Wt: 73 kg BSA: 1.81 m2 Gender: Female : 1945 Exam Type: Invasive Peripheral Vascular Procedure(s): Procedure Description: Peripheral Cath Diagnostic Procedure Exam Priority: Routine Lower Extremity Diagnostic Findings INDICATION: 75-year-old woman with past medical history of peripheral artery disease, TIA, COPD diabetes who was referred to us by Dr. Garza for evaluation of possible percutaneous revascularization of her bilateral common iliac occlusions. She has been having significant bilateral discomfort on exertion that is lifestyle limiting. She had a left taveras open wound that was being followed by wound care and has healed. She underwent CTA of abdominal aorta with runoff that showed bilateral occlusion of proximal common iliac arteries. She was referred to Dr. Garza for bypass surgery however he discussed with us that if percutaneous intervention is successful, he would prefer that has she has several comorbidities. LEFT LOWER EXTREMITY FINDINGS: Left common iliac artery: Occluded Left external iliac artery: Patent Left Common femoral artery: Patent Left SFA: Patent Left profunda artery: Patent Left popliteal artery: Patent TP segment: Patent Has good two-vessel runoff.. Lower Extremity Interventional Findings Procedure detail: We obtained access in left common femoral artery with 6 Prydeinig sheath. With Glidewire we attempted to cross the occluded iliac artery. However was going subintimally and was unsuccessful. At this time we stopped further attempts. Glidewire and sheath were removed and pressure was held. Patient left the Mechanical Developer Prover in a stable condition. Conclusions Occluded left common iliac artery. Unsuccessful attempt at revascularization. Recommendations Will refer back to Dr. Garza for surgical revascularization option as percutaneous procedure failed. Hemodynamic Data Phase:Rest AO : 82.0 / 69.0 ( 76.0 ) @ 12:44:00 PM 68.0 / 61.0 ( 64.0 ) @ 12:52:00 PM Access Site Site: Left Femoral artery Sheath Size: 6 Fr Hemost... Method: Manual Compression Hemost... Success: Successful Procedure Details Findings Procedure Consent Obtained. Admit Source: Out Patient. Pre-Procedure Time Out. Identified patient by full name and date of as verbalized by the patient/guarantor. Does the consent match the physician's order: Yes. Accurate & Complete Informed Consent: Yes. Inpatient/Outpatient History & Physical on Chart: Yes. If H&P is completed, is and addenduem needed: N/A; If yes, is the addendum complete: N/A. Visualize and Verify Site with Patient/Guarantor: N/A. Relevant Radiology Images available: N/A. Pre-op teaching completed and patient verbalized understanding. The risks, benefits, and alternatives of sedation and/or procedure were discussed by physician. The patient agrees to continue. Procedure started. Correct patient, site and procedure confirmed by cath team. Current diagnosis: PVD. PERRLA. 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 Lungs clear x 5 lobes. IV Site on Arrival: 22 gauge in the right forearm. IV Fluids: 0.9% NaCl at KVO. 0 mL infused prior to forestry laborer. Pre Procedural Pulses: bilateral dorsalis pedis was Doppled. Pre Procedural Pulses: bilateral posterior tibial was Doppled. Oxygen started at 2liters/min via nasal canula. right groin was prepped with chloroprep then draped in the usual sterile fashion. left groin was prepped with chloroprep then draped in the usual sterile fashion. Physician notified. Physician arrived. Physician scrubbed in. Time out performed with cath team. Lidocaine 1% infiltrated to the left groin. Correct Patient: Yes; Correct Procedure: Yes; Correct Site: Yes; Correct Patient Position: Yes; Correct Supplies: Yes; Dried Flammable Prep: Yes; Blood Products Available: N/A;. Ultrasound used to obtain access. Arterial access obtained with micropuncture set. Sheath injected in Left common femoral artery and runoff performed. glidewire inserted through the sheath. A 5Fr MPA catheter in over glidewire. wire out. Contrast hand injected through the catheter. glidewire inserted through the catheter. wire and catheter out. Sheath injected in Left common femoral artery and runoff performed. A Manual Compression was successful obtaining hemostatsis at the Left Femoral artery insertion site. Post Procedure: Pulses reassessed and unchanged. No VTE prophylaxis required. Medication's Wasted: Heparin = 1000 units. Medication's Wasted: Lidocaine 1% = 10 mL. Medication's Wasted: Other = Fentanyl 25 mg. Total IV fluids: 64 mL. Contrast type used: Visipaque 320 mgI/mL, 500 mL bottle. Post-op diagnosis: PAD. Complications: None. Estimated blood loss: 5mL-10mL. Responsiveness - Normal response to verbal stimuli; alert and oriented, PERRLA. Airway - Unaffected, no intervention required; spontaneous ventilation. Circulation: W/N/L, pulses unchanged. Nausea/Vomiting: No. Procedure completed. Vital chart was stopped. Patient transferred by bed to 1st floor. Procedure Medications Start: 11:20 AM Stop: 11:20 AM Medication: Versed Amount: 1 mg Route: I.V. Start: 11:21 AM Stop: 11:21 AM Medication: Fentanyl Amount: 50 mcg Route: I.V. Start: 11:42 AM Stop: 11:42 AM Medication: Versed Amount: 1 mg Route: I.V. Start: 11:42 AM Stop: 11:42 AM Medication: Fentanyl Amount: 25 mcg Route: I.V. I, the attending physician, have reviewed and verified all procedure medications. Yes, all medications given per verbal order History/Risk Factors Hypertension: Yes Dyslipidemia: Yes Peripheral Arterial Disease (PAD): Yes Obesity: No Renal Disease: No Tobacco Use: Current/Recent(w/in 1 year) Prior Interventions PCI: No CABG: No Valve Surgery: No Report Signatures Finalized by Jt Prabhakar MD on 10/31/2021 06:27 PM
[2021-10-17 07:46] LABS: Basophils # 0.2 10^3/uL (0.0-0.1); Basophils % 1.2 %; Eosinophils # 0.2 10^3/uL (0.0-0.8); Eosinophils % 1.5 %; Hematocrit 47.2 % (37.0-47.0); Hemoglobin 15.5 g/dL (11.5-15.3); Lymphocytes # 2.9 10^3/uL (0.8-4.8); Lymphocytes % 22.3 %; Mean Corpuscular HGB Conc 32.8 g/dL (30.0-36.0); Mean Corpuscular Hemoglobin 28.9 pg (28.0-34.0); Mean Corpuscular Volume 88.1 fl (81-99); Mean Platelet Volume 8.6 fL (7.4-10.4); Monocytes % 7.7 %; Neutrophils # 8.58 10^3/uL (1.8-7.7); Neutrophils % 66.8 %; Nucleated Red Blood Cells % 0 %; Platelet Count 236 10^3/cmm (130-400); Red Blood Count 5.36 10^6/uL (4.1-5.3); Red Cell Distribution Width 14.5 % (12.1-15.1); White Blood Count 12.9 10^3/uL (4.0-10.0)
[2021-10-17 07:53] LABS: SARS Covid-2 Antigen Negative (Negative)
[2021-10-17 07:59] LABS: INR 0.98 (0.8-1.2)
[2021-10-17 08:03] LABS: Anion Gap 14.9 (5-19); Blood Urea Nitrogen 13 mg/dL (8-23); Calcium 9.2 mg/dL (8.5-10.5); Carbon Dioxide 28 mmol/L (22-29); Chloride 99 mmol/L (98-107); Glucose 235 mg/dL (65-115); Osmolality Calculated 294 mOsm/kg (285-295); Potassium 3.9 mmol/L (3.5-5.1); Sodium 138 mmol/L (136-145)
--- NOTE | 2021-10-17 10:55 | P.HP_ITS ---
Same Day Surgery H&P Indication for Procedure/HPI DATE OF PROCEDURE: October 17, 2021 CHIEF COMPLAINT/INDICATIONFOR SURGICAL PROCEDURE: Life style limiting claudication PREOP DIAGNOSIS: Peripheral arterial disease PLANNED PROCEDURE: Operation Date: 10/17/21 08:30 Proposed Procedures p Peripheral Diagnostic(Bilateral) - Jt Prabhakar M.D Possible percutaneous intervention ?75-year-old woman with past medical history of peripheral artery disease, TIA, COPD diabetes who was referred to us by Dr. Garza for evaluation of possible percutaneous revascularization of her bilateral common iliac occlusions.? She has been having significant bilateral discomfort on exertion that is lifestyle limiting. She had a left taveras open wound that was being followed by wound care and has healed.? She underwent CTA of abdominal aorta with runoff that showed bilateral occlusion of proximal common iliac arteries.? She was referred to Dr. Garza for bypass surgery however he discussed with us that if percutaneous intervention is successful, he would prefer that has she has several comorbidities.? Plan for revascularization attempt ROS CONSTITUTIONAL: No fever chills weight loss or gain or night sweats. [] HEENT: Normocephalic, atraumatic.[] RESPIRATORY: No cough, sputum, hemoptysis or wheezing.[] CARDIOVASCULAR: No shortness of breath, chest pain, PND, orthopnea, lower extremity edema, presyncope or syncope. [] GI: no nausea vomiting diarrhea. [] SHOWER ENCLOSURE INSTALLER: No numbness, tingling, weakness or loss of function in any part of the body. [] MUSCULOSKELETAL: No knee or joint pain or rashes. [] Medications/Allergies* Home Medications Medication Instructions Recorded Confirmed Type aspirin 81 mg tablet,delayed 81 mg PO QDAY 09/06/19 10/16/21 History release (Adult Low Dose Aspirin) diltiazem HCl 180 mg capsule,24 180 mg PO QAM 09/06/19 10/16/21 History hr,extended release fenofibrate nanocrystallized 145 145 mg PO QDAY 09/06/19 10/16/21 History mg tablet glipizide 10 mg tablet 40 mg PO BID tab 09/06/19 10/16/21 History hydrochlorothiazide 25 mg tablet 25 mg PO QAM 09/06/19 10/16/21 History isosorbide mononitrate 30 mg 30 mg PO QAM 09/06/19 10/16/21 History tablet,extended release 24 hr levothyroxine 175 mcg tablet 175 mcg PO QDAY 09/06/19 10/16/21 History linagliptin 5 mg tablet (Tradjenta) 5 mg PO QAM 09/06/19 10/16/21 History nitroglycerin 0.4 mg sublingual 0.4 mg SUBLINGUAL Q5M PRN 09/06/19 10/16/21 History tablet (Nitrostat) rosuvastatin 40 mg tablet (Crestor) 40 mg PO .HS tab 09/06/19 10/16/21 History ranolazine 500 mg tablet,extended 500 mg PO BID 11/17/20 10/16/21 History release,12 hr cyclobenzaprine 5 mg tablet 10 mg PO TID PRN tab 03/21/21 10/16/21 History insulin degludec 100 unit/mL (3 20 unit SUBCUT DAILY ml 03/21/21 10/16/21 History mL) subcutaneous pen biotin 10,000 mcg capsule mcg PO 05/07/21 06/27/21 History gabapentin 300 mg capsule 300 mg PO BID cap 05/07/21 10/16/21 History multivit with 1 tab PO DAILY 05/07/21 10/16/21 History yemunbwz-xtti-PB-lutein 8 mg iron-400 mcg-300 mcg tablet (Centrum Silver Women) vitamin E 200 unit capsule 200 unit PO BID 05/07/21 10/16/21 History atenolol 50 mg tablet 50 mg PO DAILY 09/05/21 10/16/21 History Allergies/Adverse Reactions Allergy/AdvReac Type Severity Reaction Status Date / Time Sulfa (Sulfonamide Allergy RASH Verified 09/05/21 08:18 Antibiotics) tetanus toxoid, adsorbed Allergy Unknown Verified 09/05/21 08:18 clopidogrel [From Plavix] AdvReac Severe Hallucinati Verified 09/05/21 08:18 on metformin AdvReac DIARRHEA Verified 09/05/21 08:18 Penicillins AdvReac RASH Verified 09/05/21 08:18 Pertinent History/Comorbid Conditions* Medical History (Updated 07/01/21 @ 22:05 by Jt Prabhakar M.D) Atherosclerotic cardiovascular disease Atherosclerotic heart disease [place] coronary artery w/angina pectoris Cataracts, bilateral Diabetes Dyslipidemia GERD (gastroesophageal reflux disease) Hypersomnia Hypertension Hypothyroidism Seasonal allergies Surgical History (Updated 10/20/19 @ 11:33 by Liz Russell MD) History of cholecystectomy History of hysterectomy Family History (Updated 03/21/21 @ 12:05 by Barbara Meredith RN) Diabetes Mother Sister CAD (coronary artery disease) Mother Lung disease Sister Cancer Sister Hypertension Stroke Mother Denies family history of Clotting disorder Dementia Chronic kidney disease (CKD) Suicide Anesthesia complication Bleeding disorder Social History Smoking and tobacco status: current every day smoker cigarettes Packs smoked per day: 2 Alcohol intake: never Marital status: History of recent travel: No Current gender identity: Female Pertinent Exam Findings alert, oriented x 3, clear to auscultation bilaterally and regular rate & rhythm Conscious Sedation Assessment PATIENT ASSESSED PRIOR TO SEDATION, WITH NO CHANGE NOTED: Yes AIRWAY EVAL/ANESTHESIA PLAN: normal airway, ASA III, Monitored Anesthesia, Local Anesthesia, Risks, benefits & alternatives of sedation and/or procedure discussed and Patient agrees to continue as planned Recommendations Surgery/Procedure today (Peripheral angiogram with possible percutaneous intervention) Coding Level of Care Code Acute 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
--- NOTE | 2021-10-17 13:32 | PC.NURSE ---
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 No bleeding or hematoma noted. Pt [id number]. Pt teaching provided r/t HOB elevation, bedrest and expected dc. Pt understands but requires some reminding. Pt c/o hunger and thirst. Will discuss with MD. VSS. Pt oriented to room. Will monitor. 1230 Spoke with MD, new orders for diet placed in chart. 1333 Went to pt room and pt had HOB at 54deg. HOB reduced to 30 deg and controls locked. Pt reeducated about HOB elevation. Will monitor.
--- NOTE | 2021-10-17 15:37 | PC.NURSE ---
Pt up to bathroom and back to side of bed. Tolerated well. C/O slight dizziness when rising after bedrest but did well. Dressing c/d/i to L groin, no hematoma noted.
[2021-10-17 17:07] LABS: Glucose Point of Care 235 mg/dL (70-110)
--- NOTE | 2021-10-17 18:05 | PC.NURSE ---
PIV removed, dc instructions given. Pt verbalizes understanding. All paperwork given to pt. Pt removed from monitor to get dressed. Awaiting family to take home
--- NOTE | 2021-10-17 18:19 | PC.NURSE ---
Pt wheeled to waiting private vehicle. Assisted into vehicle per staff.
== END 2021-10-17 18:20 | disposition home or self-care (01) ==
LOC: CCL 07:06 → CSU 12:43
PROVIDERS: PCP Nurse Practitioner Family; Visit Provider Internal Medicine
DX: I70.222 Atherosclerosis of native arteries of extremities with rest pain, left leg (principal); I10 Essential (primary) hypertension; E78.5 Hyperlipidemia, unspecified; F17.210 Nicotine dependence, cigarettes, uncomplicated; Z86.73 Personal history of transient ischemic attack (TIA), and cerebral infarction without residual deficits; J44.9 Chronic obstructive pulmonary disease, unspecified; E11.9 Type 2 diabetes mellitus without complications; I25.110 Atherosclerotic heart disease of native coronary artery with unstable angina pectoris; E03.9 Hypothyroidism, unspecified
CPT/HCPCS: 36416; 75625; 80048; 82962; 85025; 85610; 87426; C1769; C1887; C1894; J1644; J2250; J3010; J7030; Q9967

== ENCOUNTER → 2021-11-16 09:30 | Outpatient (BNVA) | payer MEDICARE, MEDICAID, SELFPAY | PROVIDERS: PCP Nurse Practitioner Family; Visit Provider Internal Medicine | DX: Z09 Encounter for follow-up examination after completed treatment for conditions other than malignant neoplasm (principal); G45.9 Transient cerebral ischemic attack, unspecified; R09.89 Other specified symptoms and signs involving the circulatory and respiratory systems; I73.9 Peripheral vascular disease, unspecified; I10 Essential (primary) hypertension; E78.5 Hyperlipidemia, unspecified; J44.1 Chronic obstructive pulmonary disease with (acute) exacerbation; E11.65 Type 2 diabetes mellitus with hyperglycemia; Z79.4 Long term (current) use of insulin; Z87.891 Personal history of nicotine dependence; F17.210 Nicotine dependence, cigarettes, uncomplicated | CPT/HCPCS: 99214 ==

== ENCOUNTER → 2021-11-30 08:57 | Outpatient (BNVA) | payer MEDICARE, MEDICAID, SELFPAY | PROVIDERS: PCP Nurse Practitioner Family; Visit Provider Thoracic Surgery (Cardiothoracic Vascular Surgery) | DX: I73.9 Peripheral vascular disease, unspecified (principal); F17.210 Nicotine dependence, cigarettes, uncomplicated; Z79.82 Long term (current) use of aspirin | CPT/HCPCS: 99213 ==

== ENCOUNTER 2021-12-20 12:37 | Outpatient (CLI) | payer MEDICARE, MEDICAID, SELFPAY ==
--- NOTE | 2021-12-20 12:48 | USCV_ITS ---
Nirali Beaulieu Age: 76 Gender: F : 1945 Exam Date: 12/20/2021 13:03 Ordering Phys: Bi Garza MD ([email or web address] Technologist: GARRETT Exam Location: [facility] [place] Indication: BLE SWELLING HISTORY: Lower extremity swelling. PROCEDURES: Venous duplex imaging was performed in bilateral lower extremities. The following venous structures were evaluated: common femoral vein, profunda vein, proximal portion of the greater saphenous vein, superficial femoral vein, and the popliteal vein. In addition, the posterior tibial and peroneal trunk were evaluated. Serial compression, augmentation maneuvers, and spectral Doppler flow evaluation were performed. FINDINGS: Normal 2-D Doppler and augmentation and compressibility throughout the lower extremity venous structures. Additional imaging through the proximal calf veins also reveals no thrombus. Limited evaluation of the greater saphenous vein is patent with no thrombus. Bilateral subcutaneous edema. CONCLUSIONS No DVT bilateral lower extremities. Dr. Miranda Gonzalez DO (Electronically Signed) Final Date: 20 Dec 2021 15:01 S
== END 2021-12-20 12:38 | disposition home or self-care (01) ==
LOC: RAD 12:40
PROVIDERS: PCP Nurse Practitioner Family; Visit Provider Thoracic Surgery (Cardiothoracic Vascular Surgery)
DX: M79.89 Other specified soft tissue disorders (principal)
CPT/HCPCS: 93970

== ENCOUNTER 2022-01-22 14:31 | Outpatient (CLI) | payer MEDICARE, MEDICAID, SELFPAY ==
--- NOTE | 2022-01-22 15:09 | PFTS_ITS ---
Date of Study:01/22/22 Date of Dictation: 01/24/2022 MECHANICS: Postbronchodilator forced vital capacity (FVC) is normal. 2.65 L 105% predicted Postbronchodilator forced expiratory volume in one second (FEV1) is normal. 1.84 L 95% predicted FEV1/FVC is reduced. There is no significant response to bronchodilators. FLOW VOLUME LOOP: Sloping of expiratory limb suggestive of airflow obstruction . LUNG VOLUMES: Total lung capacity (TLC) is normal. Residual volume normal (RV) is . DIFFUSING CAPACITY FOR CARBON MONOXIDE: Mildly reduced . INTERPRETATION: The spirometry is suggestive of mild obstruction with prebronchodilator FVC 2.53 L and 101% predicted and prebronchodilator FEV1 1.77 L and 91% predicted and reduced FEV1/FVC ratio 70. There is no significant response to bronchodilators. Lung volumes are normal. DLCO is mildly reduced 62%. Correlate clinically. MTDD
== END 2022-01-22 14:32 | disposition home or self-care (01) ==
LOC: RT 14:33
PROVIDERS: PCP Nurse Practitioner Family; Visit Provider Thoracic Surgery (Cardiothoracic Vascular Surgery)
DX: R06.00 Dyspnea, unspecified (principal)
CPT/HCPCS: 94060; 94726; 94729; J7611

== ENCOUNTER → 2022-02-21 09:28 | Outpatient (BNVA) | payer MEDICARE, MEDICAID, SELFPAY | PROVIDERS: PCP Nurse Practitioner Family; Visit Provider Thoracic Surgery (Cardiothoracic Vascular Surgery) | DX: I74.09 Other arterial embolism and thrombosis of abdominal aorta (principal) | CPT/HCPCS: 99213 ==

== ENCOUNTER → 2022-03-26 10:57 | Outpatient (BNVA) | payer MEDICARE, MEDICAID, SELFPAY | PROVIDERS: PCP Nurse Practitioner Family; Visit Provider Anesthesiology Pain Medicine | DX: F17.210 Nicotine dependence, cigarettes, uncomplicated (principal); G89.29 Other chronic pain; M47.816 Spondylosis without myelopathy or radiculopathy, lumbar region; M54.16 Radiculopathy, lumbar region; M25.559 Pain in unspecified hip; M19.90 Unspecified osteoarthritis, unspecified site | CPT/HCPCS: 99205; 99215 ==

== ENCOUNTER → 2022-03-27 14:43 | Outpatient (BNVA) | payer MEDICARE, MEDICAID, SELFPAY | PROVIDERS: PCP Nurse Practitioner Family; Referring Provider Nurse Practitioner Family; Visit Provider Internal Medicine | DX: F17.210 Nicotine dependence, cigarettes, uncomplicated (principal); Z79.84 Long term (current) use of oral hypoglycemic drugs; E11.65 Type 2 diabetes mellitus with hyperglycemia; E78.5 Hyperlipidemia, unspecified; E03.9 Hypothyroidism, unspecified; Z79.4 Long term (current) use of insulin | CPT/HCPCS: 99204 ==

== ENCOUNTER → 2023-04-01 10:21 | Outpatient (BNVA) | payer MEDICAID, SELFPAY | PROVIDERS: PCP Nurse Practitioner Family; Visit Provider Internal Medicine | DX: E11.65 Type 2 diabetes mellitus with hyperglycemia (principal); Z79.4 Long term (current) use of insulin; E78.5 Hyperlipidemia, unspecified; E03.9 Hypothyroidism, unspecified; Z79.890 Hormone replacement therapy | CPT/HCPCS: 99214 ==

== ENCOUNTER 2023-04-22 14:01 | Emergency (ER) | payer MEDICARE, MEDICAID, SELFPAY ==
[2023-04-22] VITALS (11 sets, daily range): BP systolic 147–185; BP diastolic 65–107; PULSE 83–88; RESP 16–20; TEMP 36.7; O2SAT 93–97; BMI 22.8
--- NOTE | 2023-04-22 14:04 | ECG_ITS ---
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 Measurements Intervals [place] Rate: 81 P: 66 ND: 162 QRS: 56 QRSD: 101 T: 75 QT: 390 QTc: 453 Interpretive Statements SINUS RHYTHM LEFT ATRIAL ENLARGEMENT [-0.15mV P-WAVE IN V1/V2] No previous ECG available for comparison Electronically Signed On 04-22-2023 17:57:35 CDT by Jt Prabhakar M.D. [id number]
--- NOTE | 2023-04-22 14:24 | XR_ITS ---
WS: [id number] Exam: XR chest 1V portable [id number] Date/Time of Exam: 04/22/2023 2:26 PM Reason For Exam: chest pain Comparison 01/02/2010. The lungs are fully expanded and clear. Normal cardiomediastinal silhouette. No pleural effusions. Regional bony elements are intact. High riding RIGHT humeral head probably indica armando a longstanding rotator cuff tear. IMPRESSION: 1. No acute cardiopulmonary finding.
[2023-04-22 14:34] LABS: Basophils # 0.1 10^3/uL (0.0-0.1); Basophils % 0.7 %; Eosinophils # 0.1 10^3/uL (0.0-0.8); Eosinophils % 0.7 %; Hematocrit 45.8 % (36-47); Lymphocytes # 4.7 10^3/uL (0.8-4.8); Lymphocytes % 30.9 %; Mean Corpuscular HGB Conc 34.7 g/dL (30-55); Mean Corpuscular Volume 86.4 fl (85-98); Mean Platelet Volume 8.8 fL (7.4-10.4); Monocytes # 1.2 10^3/uL (0.2-0.9); Monocytes % 7.7 %; Neutrophils # 8.97 10^3/uL (1.8-7.7); Neutrophils % 59.6 %; Nucleated Red Blood Cells % 0 %; Platelet Count 303 10^3/cmm (157-399); Red Cell Distribution Width 14.2 % (12.1-15.1); White Blood Count 15.05 10^3/uL (3.29-11.43)
--- NOTE | 2023-04-22 14:45 | W.ED.CHESTPA ---
HPI - Chest Pain General: Chief Complaint: Chest Pain Stated Complaint: CP Time Seen by Provider: 04/22/23 14:09 Source: patient Mode of arrival: EMS History of Present Illness: 77-year-old female who presents to the emergency room with complaints of chest pain. Began yesterday while at rest its persisted today she has had some mild relief with nitro prior to arrival here she received 3 nitro. She is also had some shortness of breath nausea and diaphoresis with this. She states she has known heart disease had multiple's angiography with stents in the past reviewing her chart I am not finding that she had any done here she did have several evaluations of her lower extremities with an iliac artery stenosis previously. She does not have any chest pain at this time. Prior to last night she not had any episodes of chest pain. MD complaint: chest pain Pertinent past history: coronary artery disease Onset (ago): day(s) Timing of current episode: episodic Prior episodes: Yes Onset: during rest Pain location: substernal and left chest Pain radiation: none Severity: moderate Quality: aching and heaviness Relieving factors: nitroglycerin Exacerbating factors: nothing Associated symptoms: Deny abdominal pain, diaphoresis, dyspnea, fever(s), leg edema, nausea, palpitations, sense of impending doom, syncope or vomiting Review of Systems Const: Denies: fever(s), chills or diaphoresis ENMT: Denies: throat pain, ear or mastoid pain, nasal discharge or nasal congestion Card: Reports: chest pain; Denies: palpitations or syncope Resp: Denies: dyspnea GI: Denies: abdominal pain, nausea or vomiting : Denies: dysuria, urinary frequency or urinary urgency Skin/Breast: Denies: rash or pruritus PFSH ED PFSH: Medical History 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 Cataracts, bilateral Diabetes Dyslipidemia GERD (gastroesophageal reflux disease) Hypersomnia Hypertension Hypothyroidism Seasonal allergies Surgical History History of cholecystectomy History of hysterectomy Family History Mother CAD (coronary artery disease) Diabetes Stroke Sister Cancer Diabetes Lung disease Other Hypertension Denies family history of Clotting disorder Dementia Chronic kidney disease (CKD) Suicide Anesthesia complication Bleeding disorder Social History Smoking and tobacco status: current every day smoker cigarettes Packs smoked per day: 2 Alcohol intake: never Substance/Drug Use: never Marital status: Current gender identity: Female Physical Exam Const: GENERAL APPEARANCE: cooperative and comfortable ORIENTATION/CONSCIOUSNESS: Yes awake, Yes oriented to person, Yes oriented to place and Yes oriented to time HENMT: COMMON NORMALS: normocephalic, atraumatic and hearing grossly normal bilaterally HEAD & SCALP: normocephalic and atraumatic Resp: COMMON NORMALS: normal respiratory effort, No retractions, No use of accessory muscles and clear to auscultation bilaterally AUSCULTATION: clear to auscultation bilaterally Cardio: COMMON NORMALS: regular rate, regular rhythm and No murmurs present (Cardio) RATE: regular rate RHYTHM: regular rhythm GI: COMMON NORMALS: Soft to palpation and No hepatosplenomegaly present AUSCULTATION: Yes normoactive bowel sounds PALPATION: Yes Soft to palpation, No Tenderness to palpation present (GI), No Guarding due to palpation present (GI) and Yes No hepatosplenomegaly present Extremity: COMMON NORMALS: normal to inspection, capillary refill normal, no clubbing, cyanosis or edema, no calf tenderness and no pedal edema Neuro: SENSORIUM/ORIENTATION: Yes oriented to person, Yes oriented to place and Yes oriented to time Skin: COMMON NORMALS: no rashes or lesions noted GENERAL SKIN EXAM: no rashes or lesions noted Course Vital Signs: Vital signs: Vital Signs Temperature 98.0 F 04/22/23 14:05 Pulse Rate 87 04/22/23 18:12 Respiratory Rate 18 04/22/23 18:12 Blood Pressure 167/78 04/22/23 18:12 Pulse Oximetry 93 04/22/23 18:12 Oxygen Delivery Me thod Room Air 04/22/23 14:05 MDM - Chest Pain Medical Decision Making EKG does not show any acute changes cardiac enzymes negative. We will discharge patient home and set her up for an outpatient Lexiscan sestamibi stress test increase isosorbide mononitrate to 60 mg daily. Medical Records I reviewed the patient's medical records. Lab Data I reviewed the patient's lab results. 04/22/23 13:30 04/22/23 14:54 Laboratory Results WBC 15.05 10^3/uL (3.29-11.43) H 04/22/23 13:30 RBC 5.30 10^6/uL (3.85-5.65) 04/22/23 13:30 Hgb 15.90 g/dL (11.27-16.99) 04/22/23 13:30 Hct 45.8 % (36-47) 04/22/23 13:30 MCV 86.4 fl (85-98) 04/22/23 13:30 MCH 30.0 pg (27-33) 04/22/23 13:30 MCHC 34.7 g/dL (30-55) 04/22/23 13:30 RDW 14.2 % (12.1-15.1) 04/22/23 13:30 Plt Count 303 10^3/cmm (157-399) 04/22/23 13:30 MPV 8.8 fL (7.4-10.4) 04/22/23 13:30 Neut % (Auto) 59.6 % 04/22/23 13:30 Lymph % (Auto) 30.9 % 04/22/23 13:30 Tift % (Auto) 7.7 % 04/22/23 13:30 Eos % (Auto) 0.7 % 04/22/23 13:30 Baso % (Auto) 0.7 % 04/22/23 13:30 Neut # (Auto) 8.97 10^3/uL (1.8-7.7) H 04/22/23 13:30 Lymph # (Auto) 4.7 10^3/uL (0.8-4.8) 04/22/23 13:30 Tift # (Auto) 1.2 10^3/uL (0.2-0.9) H 04/22/23 13:30 Eos # (Auto) 0.1 10^3/uL (0.0-0.8) 04/22/23 13:30 Baso # (Auto) 0.1 10^3/uL (0.0-0.1) 04/22/23 13:30 Nucleated RBC % (auto) 0 % 04/22/23 13:30 Nucleated RBCs # 0.0 /100WBC 04/22/23 13:30 Sodium 136 mmol/L (136-145) 04/22/23 14:54 Potassium 4.1 mmol/L (3.5-5.1) 04/22/23 14:54 Chloride 98 mmol/L (98-107) 04/22/23 14:54 Carbon Dioxide 28 mmol/L (22-29) 04/22/23 14:54 Anion Gap 14.1 (5-19) 04/22/23 14:54 BUN 15 mg/dL (8-23) 04/22/23 14:54 Creatinine 0.8 mg/dL (0.5-0.9) 04/22/23 14:54 GFR Calculation Not Reportable 04/22/23 14:54 Glucose 105 mg/dL (65-115) 04/22/23 14:54 Calculated Osmolality 283 mOsm/kg (285-295) L 04/22/23 14:54 Calcium 9.2 mg/dL (8.5-10.5) 04/22/23 14:54 Total Bilirubin 0.3 mg/dL (0.15-1.2) 04/22/23 14:54 AST 16 U/L (0-32) 04/22/23 14:54 ALT 17 U/L (0-33) 04/22/23 14:54 Alkaline Phosphatase 46 U/L (35-105) 04/22/23 14:54 Troponin T Baseline 11 ng/L (0-10) H 04/22/23 14:54 Troponin T 120 Minute 10.98 ng/L (0-10) H 04/22/23 16:50 Delta Troponin T -0.02 ABS# (0-10) L 04/22/23 16:50 Total Protein 6.2 g/dL (6.6-8.7) L 04/22/23 14:54 Albumin 4.4 g/dL (3.5-5.2) 04/22/23 14:54 Globulin 1.8 g/dL (1.3-4.6) 04/22/23 14:54 Discharge Plan Discharge Patient Disposition: Home Clinical Impression: Chest pain Condition: Stable Prescriptions: New isosorbide mononitrate 60 mg tablet extended release 24 hr 60 mg PO DAILY Qty: 30 0RF No Action isosorbide mononitrate 30 mg tablet extended release 24 hr 30 mg PO QAM hydrochlorothiazide 25 mg tablet 25 mg PO QAM levothyroxine 175 mcg tablet 175 mcg PO QAM rosuvastatin [Crestor] 40 mg tablet 40 mg PO BEDTIME aspirin [Adult Low Dose Aspirin] 81 mg tablet,delayed release (DR/EC) 81 mg PO QAM (DME) Compact Compressor Nebulizer Misc See Rx Instructions .ROUTE .MEDSUPPLY Qty: 1 0RF Rx Instructions: As directed (DME) Reusable Nebulizer Kit Kit See Rx Instructions .ROUTE .MEDSUPPLY Qty: 1 0RF Rx Instructions: As directed albuterol sulfate 2.5 mg /3 mL (0.083 %) solution for nebulization 2.5 mg INHALATION QID PRN (Reason: shortness of breath or wheezing) Qty: 180 1RF ranolazine 500 mg tablet extended release 12 hr 500 mg PO BID insulin degludec [Tresiba FlexTouch U-100] 100 unit/mL (3 mL) insulin pen 16 unit SUBCUT QAM biotin 10,000 mcg capsule 10,000 mcg PO BEDTIME Centrum Silver Women 8 mg iron-400 mcg-300 mcg tablet 1 tab PO QPM atenolol 50 mg tablet 50 mg PO DAILY Qty: 90 3RF cilostazol 50 mg tablet 50 mg PO BID Qty: 180 3RF ibuprofen 800 mg tablet 800 mg PO Q8H PRN (Reason: pain) Qty: 30 0RF Flax, Fish and Borage Oil 400-5 mg-unit Capsule 1 cap PO DAILY Nitrostat 0.4 mg Tablet, Sublingual 0.4 mg SUBLINGUAL Q5M PRN (Reason: Chest Pain) Rx Instructions: do not exceed 3 doses per episode diclofenac sodium 75 mg tablet,delayed release (DR/EC) 75 mg PO BID PRN (Reason: Pain) Flonase Allergy Relief 50 mcg/actuation [place],Suspension 1 spray INTRANASAL DAILY PRN (Reason: Allergy Symptoms) DILT-XR 180 mg capsule,ext.rel 24h degradable 180 mg PO DAILY vitamin E 268 mg (400 unit) Capsule 1 cap PO DAILY fenofibrate 160 mg tablet 160 mg PO DAILY Neuriva Plus Brain Performance 1.7 mg-400 mcg- 2.4 mcg Capsule 1 cap PO DAILY Ozempic 0.25 mg or 0.5 mg (2 mg/3 mL) pen injector 0.25 mg SUBCUT Q7D Rx Instructions: on fri Discharge Orders: Discharge ED (Routine); Ordered 04/22/23 Ordered By: Nadir Gomez Referrals: Agnes Dee APN [Primary Care Provider] - Discharge Diet: Usual diet Discharge Activity: Limit activity as instructed Patient Instructions: Opioid Safety, Pain Management Activity Restrictions/Additional Instructions: Avoid exertional activity. Increase your isosorbide mononitrate to 60 mg daily and new prescription was given to you today. spa manager/esthetician will make arrangements for you to have a outpatient Lexiscan sestamibi stress test Coding Level of Care Code ED General Internal Medicine Doctor for Humberto Hdez
[2023-04-22 15:24] LABS: Troponin(5th) Baseline 11 ng/L (0-10)
[2023-04-22 15:27] LABS: Alanine Aminotransferase 17 U/L (0-33); Albumin Level 4.4 g/dL (3.5-5.2); Alkaline Phosphatase 46 U/L (35-105); Anion Gap 14.1 (5-19); Aspartate Amino Transferase 16 U/L (0-32); Blood Urea Nitrogen 15 mg/dL (8-23); Calcium 9.2 mg/dL (8.5-10.5); Carbon Dioxide 28 mmol/L (22-29); Chloride 98 mmol/L (98-107); Globulin 1.8 g/dL (1.3-4.6); Glucose 105 mg/dL (65-115); Osmolality Calculated 283 mOsm/kg (285-295); Potassium 4.1 mmol/L (3.5-5.1); Sodium 136 mmol/L (136-145); Total Bilirubin 0.3 mg/dL (0.15-1.2); Total Protein 6.2 g/dL (6.6-8.7)
--- NOTE | 2023-04-22 16:30 | PC.PHAR ---
pt states her niece whitney holman [phone] takes care of her medications except for her insulins-pt states she uses tresiba flextouch u-100 16 units in the am ext shows last filled 03/3023 30 units daily-pt states she is using ozempic 0.25mg q7d on fri ext med history shows last filled 04/17/23 0.5mg q7d pt states she did use to 0.5mg q7d but states the dr took her back to the 0.25mg q7d and that shes been using the 0.25mg for a while-notes are made in the pharmacy comments
--- NOTE | 2023-04-22 16:37 | PC.NURSE ---
PT PLACED ON CONTINUOUS NIBP, SPO2, AND CM
--- NOTE | 2023-04-22 16:41 | ECG_ITS ---
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 Measurements Intervals [place] Rate: 84 P: 53 MA: 172 QRS: 34 QRSD: 96 T: 68 QT: 385 QTc: 456 Interpretive Statements SINUS RHYTHM LEFT ATRIAL ENLARGEMENT [-0.15mV P-WAVE IN V1/V2] Compared to ECG 04/22/2023 14:04:36 No significant changes Electronically Signed On 04-22-2023 17:58:00 CDT by Jt Prabhakar M.D. [id number]
[2023-04-22] MEDS: nitroglycerin 1 gm/inch oint Pkt 0.5 INCH TOPICAL (16:51)
[2023-04-22 17:16] LABS: Troponin 5 2HR 10.98 ng/L (0-10)
[2023-04-22 17:17] LABS: Troponin 5 2HR Delta -0.02 ABS# (0-10)
--- NOTE | 2023-04-23 09:22 | DCPLANNER ---
manager marketing sales had message to schedule an outpatient stress test for patient. manager marketing sales faxed signed order to centralized scheduling, who will call patient with appointment information.
== END 2023-04-22 18:13 | disposition home or self-care (01) ==
PROVIDERS: Emergency Provider Family Medicine; PCP Nurse Practitioner Family
DX: R07.9 Chest pain, unspecified (principal); Z79.82 Long term (current) use of aspirin; Z79.4 Long term (current) use of insulin; F17.210 Nicotine dependence, cigarettes, uncomplicated; I25.10 Atherosclerotic heart disease of native coronary artery without angina pectoris; E11.9 Type 2 diabetes mellitus without complications; E78.5 Hyperlipidemia, unspecified; I10 Essential (primary) hypertension
CPT/HCPCS: 36415; 71045; 80053; 84484; 85025; 93005; 99285

== ENCOUNTER → 2023-07-29 10:32 | Outpatient (BNVA) | payer MEDICARE, MEDICAID, SELFPAY | PROVIDERS: PCP Nurse Practitioner Family; Visit Provider Internal Medicine | DX: E03.9 Hypothyroidism, unspecified; E78.5 Hyperlipidemia, unspecified; E11.65 Type 2 diabetes mellitus with hyperglycemia; Z79.4 Long term (current) use of insulin; Z79.85 Long-term (current) use of injectable non-insulin antidiabetic drugs; Z79.890 Hormone replacement therapy | CPT/HCPCS: 99214 ==

== ENCOUNTER → 2023-08-15 08:41 | Outpatient (BNVA) | payer MEDICARE, MEDICAID, SELFPAY | PROVIDERS: PCP Nurse Practitioner Family; Visit Provider Internal Medicine | DX: E11.9 Type 2 diabetes mellitus without complications (principal); E03.9 Hypothyroidism, unspecified; E78.5 Hyperlipidemia, unspecified | CPT/HCPCS: 80053; 80061; 82043; 83036; 84439; 84443 ==

== ENCOUNTER → 2024-01-13 11:28 | Outpatient (BNVA) | payer MEDICARE, MEDICAID, SELFPAY | PROVIDERS: PCP Nurse Practitioner Family; Visit Provider Nurse Practitioner Family | DX: E03.9 Hypothyroidism, unspecified (principal); E11.65 Type 2 diabetes mellitus with hyperglycemia; Z79.4 Long term (current) use of insulin; I10 Essential (primary) hypertension; E78.5 Hyperlipidemia, unspecified; J44.1 Chronic obstructive pulmonary disease with (acute) exacerbation; Z53.20 Procedure and treatment not carried out because of patient's decision for unspecified reasons; I25.119 Atherosclerotic heart disease of native coronary artery with unspecified angina pectoris; J44.9 Chronic obstructive pulmonary disease, unspecified | CPT/HCPCS: 80053; 80061; 83036; 84443; 85025 ==

== ENCOUNTER → 2024-01-21 09:47 | Outpatient (BNVA) | payer MEDICARE, MEDICAID, SELFPAY | PROVIDERS: PCP Nurse Practitioner Family; Visit Provider Internal Medicine | DX: E11.65 Type 2 diabetes mellitus with hyperglycemia (principal); Z79.4 Long term (current) use of insulin; E78.5 Hyperlipidemia, unspecified; E03.9 Hypothyroidism, unspecified; Z79.890 Hormone replacement therapy; Z79.85 Long-term (current) use of injectable non-insulin antidiabetic drugs | CPT/HCPCS: 99214 ==

== ENCOUNTER → 2024-04-15 09:37 | Outpatient (BNVA) | payer MEDICARE, MEDICAID, SELFPAY | PROVIDERS: PCP Nurse Practitioner Family; Visit Provider Internal Medicine | DX: Z79.4 Long term (current) use of insulin (principal); E11.65 Type 2 diabetes mellitus with hyperglycemia; E78.5 Hyperlipidemia, unspecified; E03.9 Hypothyroidism, unspecified | CPT/HCPCS: 80053; 80061; 82043; 83036; 84439; 84443 ==

== ENCOUNTER 2024-04-22 09:12 | Outpatient (CLI) | payer MEDICARE, MEDICAID, SELFPAY ==
[2024-04-22 10:00] LABS: Estmated Average Glucose 131; Hemoglobin A1C 6.2 % (4.0-6.0)
[2024-04-22 10:06] LABS: Creatinine Urine, Random 121 mg/dL (28-217)
[2024-04-22 10:09] LABS: Alanine Aminotransferase 16 U/L (0-33); Albumin Level 3.9 g/dL (3.5-5.2); Alkaline Phosphatase 52 U/L (35-105); Anion Gap 12.9 (5-19); Aspartate Amino Transferase 17 U/L (0-32); Blood Urea Nitrogen 17 mg/dL (8-23); Calcium 8.9 mg/dL (8.5-10.5); Carbon Dioxide 31 mmol/L (22-29); Chloride 100 mmol/L (98-107); Chol HDL Ratio 3.81 mg/dL (0.0-4.40); Cholesterol 164 mg/dL (0-200); Globulin 2.6 g/dL (1.3-4.6); Glucose 129 mg/dL (65-115); HDL Cholesterol 43 mg/dL (60-100); LDL Cholesterol Calculated 91 mg/dL (50-129); LDL HDL Ratio 2.12 RATIO (0.00-3.22); Osmolality Calculated 293 mOsm/kg (285-295); Potassium 3.9 mmol/L (3.5-5.1); Sodium 140 mmol/L (136-145); Thyroid Stimulating Hormone 0.24 uIU/mL (0.27-4.20); Total Bilirubin 0.5 mg/dL (0.15-1.2); Total Protein 6.5 g/dL (6.6-8.7); Triglycerides 148 mg/dL (0-150)
[2024-04-22 10:24] LABS: Microalbum Creatinine Ratio Ur 488 mg/dL (0-20); Microalbumin Random Urine 59 ug/dL (0-20)
[2024-04-22 11:07] LABS: Free T4 Free Thyroxine 2.17 ng/dL (0.82-1.77)
== END 2024-04-22 09:13 | disposition home or self-care (01) ==
LOC: LAB 09:14
PROVIDERS: PCP Nurse Practitioner Family; Visit Provider Internal Medicine
DX: E11.9 Type 2 diabetes mellitus without complications (principal); E03.9 Hypothyroidism, unspecified; E78.5 Hyperlipidemia, unspecified
CPT/HCPCS: 36415; 80053; 80061; 82044; 83036; 84439; 84443

== ENCOUNTER → 2024-05-10 09:12 | Outpatient (BNVA) | payer MEDICARE, MEDICAID, SELFPAY | PROVIDERS: PCP Nurse Practitioner Family; Visit Provider Internal Medicine | DX: E03.9 Hypothyroidism, unspecified (principal) | CPT/HCPCS: 84439 ==

== ENCOUNTER → 2024-05-20 16:41 | Outpatient (BNVA) | payer MEDICARE, MEDICAID, SELFPAY | PROVIDERS: PCP Nurse Practitioner Family; Visit Provider Internal Medicine | DX: E11.65 Type 2 diabetes mellitus with hyperglycemia (principal); Z79.4 Long term (current) use of insulin; E78.5 Hyperlipidemia, unspecified; E03.9 Hypothyroidism, unspecified; Z79.890 Hormone replacement therapy | CPT/HCPCS: 99214 ==

== ENCOUNTER → 2024-07-29 09:54 | Outpatient (BNVA) | payer MEDICARE, MEDICAID, SELFPAY | PROVIDERS: PCP Internal Medicine; Visit Provider Internal Medicine | DX: E11.65 Type 2 diabetes mellitus with hyperglycemia (principal); Z79.4 Long term (current) use of insulin; E78.5 Hyperlipidemia, unspecified; E03.9 Hypothyroidism, unspecified | CPT/HCPCS: 80053; 80061; 82043; 83036; 84439; 84443 ==

== ENCOUNTER → 2024-08-02 11:19 | Outpatient (BNVA) | payer MEDICARE, MEDICAID, SELFPAY | PROVIDERS: PCP Internal Medicine; Visit Provider Internal Medicine | DX: Z53.9 Procedure and treatment not carried out, unspecified reason (principal) | CPT/HCPCS: 99213 ==

== ENCOUNTER → 2024-09-24 11:33 | Outpatient (BNVA) | payer MEDICARE, MEDICAID, SELFPAY | PROVIDERS: PCP Nurse Practitioner Family; Visit Provider Internal Medicine Cardiovascular Disease | DX: I25.10 Atherosclerotic heart disease of native coronary artery without angina pectoris (principal); E78.5 Hyperlipidemia, unspecified; I10 Essential (primary) hypertension; E11.51 Type 2 diabetes mellitus with diabetic peripheral angiopathy without gangrene; E11.65 Type 2 diabetes mellitus with hyperglycemia; Z79.4 Long term (current) use of insulin; F17.210 Nicotine dependence, cigarettes, uncomplicated; Z86.73 Personal history of transient ischemic attack (TIA), and cerebral infarction without residual deficits | CPT/HCPCS: 99214 ==

== ENCOUNTER → 2024-10-25 11:07 | Outpatient (BNVA) | payer MEDICARE, MEDICAID, SELFPAY | PROVIDERS: PCP Nurse Practitioner Family; Visit Provider Internal Medicine | DX: Z79.4 Long term (current) use of insulin (principal); E11.65 Type 2 diabetes mellitus with hyperglycemia; E03.9 Hypothyroidism, unspecified | CPT/HCPCS: 80053; 80061; 82043; 83036; 84439; 84443 ==

== ENCOUNTER → 2024-10-27 12:48 | Outpatient (BNVA) | payer MEDICARE, MEDICAID, SELFPAY | PROVIDERS: PCP Nurse Practitioner Family; Visit Provider Internal Medicine | DX: E11.65 Type 2 diabetes mellitus with hyperglycemia (principal); Z79.4 Long term (current) use of insulin; E78.5 Hyperlipidemia, unspecified; E03.9 Hypothyroidism, unspecified | CPT/HCPCS: 99213 ==

== ENCOUNTER → 2024-12-29 08:14 | Outpatient (BNVA) | payer MEDICARE, MEDICAID, SELFPAY | PROVIDERS: PCP Nurse Practitioner Family; Visit Provider Internal Medicine | DX: R68.89 Other general symptoms and signs (principal); E05.90 Thyrotoxicosis, unspecified without thyrotoxic crisis or storm | CPT/HCPCS: 84439; 84443 ==

== ENCOUNTER → 2025-01-05 08:22 | Outpatient (BNVA) | payer MEDICARE, MEDICAID, SELFPAY | PROVIDERS: PCP Nurse Practitioner Family; Visit Provider Internal Medicine | DX: E11.65 Type 2 diabetes mellitus with hyperglycemia (principal); Z79.4 Long term (current) use of insulin; H57.9 Unspecified disorder of eye and adnexa; E03.9 Hypothyroidism, unspecified; E78.5 Hyperlipidemia, unspecified | CPT/HCPCS: 99214 ==

== ENCOUNTER → 2025-02-07 11:18 | Outpatient (BNVA) | payer MEDICARE, MEDICAID, SELFPAY | PROVIDERS: PCP Nurse Practitioner Family; Visit Provider Nurse Practitioner Family | DX: E05.90 Thyrotoxicosis, unspecified without thyrotoxic crisis or storm (principal); I10 Essential (primary) hypertension; E78.5 Hyperlipidemia, unspecified; Z79.4 Long term (current) use of insulin; E11.65 Type 2 diabetes mellitus with hyperglycemia; R68.89 Other general symptoms and signs | CPT/HCPCS: 80053; 80061; 83036; 84443; 85025 ==

== ENCOUNTER → 2025-02-23 13:15 | Outpatient (BNVA) | payer MEDICARE, MEDICAID, SELFPAY | PROVIDERS: PCP Nurse Practitioner Family; Visit Provider Nurse Practitioner Family | DX: N39.0 Urinary tract infection, site not specified (principal); R39.9 Unspecified symptoms and signs involving the genitourinary system | CPT/HCPCS: 81003; 87086 ==

== ENCOUNTER → 2025-03-09 12:25 | Outpatient (BNVA) | payer MEDICARE, MEDICAID, SELFPAY | PROVIDERS: PCP Nurse Practitioner Family; Visit Provider Internal Medicine | DX: E11.65 Type 2 diabetes mellitus with hyperglycemia (principal); Z79.4 Long term (current) use of insulin; E78.5 Hyperlipidemia, unspecified; E03.9 Hypothyroidism, unspecified | CPT/HCPCS: 99213 ==

== ENCOUNTER → 2025-03-10 08:36 | Outpatient (BNVA) | payer MEDICARE, MEDICAID, SELFPAY | PROVIDERS: PCP Nurse Practitioner Family; Visit Provider Nurse Practitioner Family | DX: R30.0 Dysuria (principal) | CPT/HCPCS: 81003; 87077; 87086; 87184 ==

== ENCOUNTER → 2025-03-29 08:41 | Outpatient (BNVA) | payer MEDICARE, MEDICAID, SELFPAY | PROVIDERS: PCP Nurse Practitioner Family; Visit Provider Nurse Practitioner Family | DX: N39.0 Urinary tract infection, site not specified (principal) | CPT/HCPCS: 81000; 87077; 87086; 87184 ==

== ENCOUNTER → 2025-04-19 09:35 | Outpatient (BNVA) | payer MEDICARE, MEDICAID, SELFPAY | PROVIDERS: PCP Nurse Practitioner Family; Visit Provider Nurse Practitioner Family | DX: N39.0 Urinary tract infection, site not specified (principal) | CPT/HCPCS: 81000; 87086 ==

== ENCOUNTER → 2025-05-11 13:02 | Outpatient (BNVA) | payer MEDICARE, MEDICAID, SELFPAY | PROVIDERS: PCP Nurse Practitioner Family; Visit Provider Nurse Practitioner Family | DX: E03.9 Hypothyroidism, unspecified (principal); Z79.4 Long term (current) use of insulin; E11.65 Type 2 diabetes mellitus with hyperglycemia; R68.89 Other general symptoms and signs | CPT/HCPCS: 80053; 80061; 83036; 84443; 85025 ==